=== PATIENT | female | born 1935 | race Caucasian/White ===

== ENCOUNTER 2019-07-13 15:18 | Emergency (ER) | payer OTHER ==
[~2019-07-13] VITALS: Ht 141 cm; Wt 55.3 kg
[2019-07-13 15:23] VITALS: BP 122/86
--- NOTE | 2019-07-13 15:32 | NUR ---
AMB TO BED 06 WITH SON
--- NOTE | 2019-07-13 15:41 | NUR ---
84 YO FEMALE CO GENERAL WEAKNESS, FATIGUE, LOSS OF APPETITE AND FLANK PAIN. STATES THAT PAIN IN 6/10 IN LOWER BACK 3D. PT HAS DECREASED APPETITE AND HAS NOT EATEN NORMALLY IN A FEW DAYS. N/V/D PRESENT. PT HAS HX OF STOMACH CANCER. NO RX MEDS. Addendum: 07/13/19 at 1636 by [email or web address] AMANDA BACK PAIN 6/10 X 10 DAYS.
--- NOTE | 2019-07-13 15:51 | NUR ---
UA DIPSTICK COMPLETE AND RESULTS GIVEN TO
--- NOTE | 2019-07-13 15:53 | NUR ---
Patient being evaluated by DR SALDIVAR at bedside.
[2019-07-13] MEDS ORDERED: NACL 0.9% 1,000 ML IV ONE (16:05)
[2019-07-13 16:30] LABS: BASOPHILS % (AUTO) 0.7 % (0.0-2.0); EOSINOPHILS # (AUTO) 0.1 K/uL (0-0.4); EOSINOPHILS % (AUTO) 1.7 % (0.0-4.0); HEMATOCRIT 43.1 % (36-48); HEMOGLOBIN 14.2 g/dL (12.0-16.0); LYMPHOCYTES # (AUTO) 1.3 K/uL (2.5-16.5); LYMPHOCYTES % (AUTO) 25.5 % (20.5-51.1); MEAN CORPUSCULAR HEMOGLOBIN 30 pg (27-31); MEAN CORPUSCULAR HGB CONC 33 g/dL (33-37); MEAN CORPUSCULAR VOLUME 91.3 fL (80-94); MONOCYTES # (AUTO) 0.6 K/uL (0.8-1.0); MONOCYTES % (AUTO) 11.5 % (1.7-9.3); NEUTROPHILS % (AUTO) 60.6 % (42.2-75.2); PLATELET COUNT (AUTO) 327 K/uL (140-450); RED BLOOD CELL COUNT(AUTO) 4.72 MIL/uL (4.20-5.40); RED CELL DISTRIBUTION WIDTH 13.9 % (11.6-13.7)
--- NOTE | 2019-07-13 16:59 | NUR ---
C/O BODY ACHE 11/16 AT THIS TIME.
[2019-07-13 17:14] LABS: ALBUMIN 3.9 g/dL (3.4-5.0); ANION GAP 15.4 (8-16); ASPARTATE AMINOTRANSFERASE 21 U/L (15-37); CARBON DIOXIDE 26.6 mmol/L (21-32); CHLORIDE 104 mmol/L (98-107); CREATININE 0.8 mg/dL (0.6-1.3); GLUCOSE 98 mg/dL (74-106); LIPASE 218 U/L (73-393); SODIUM SERUM 142 mmol/L (136-145); TOTAL BILIRUBIN 0.7 mg/dL (0.0-1.0); UREA NITROGEN, BLOOD 25 mg/dL (7-18)
[2019-07-13 17:18] LABS: APPEARANCE,URINE CLEAR (CLEAR); BILIRUBIN,URINE NEGATIVE (NEGATIVE); BLOOD, URINE NEGATIVE (NEGATIVE); COLOR,URINE AMBER (YELLOW); LEUKOCYTE ESTERASE ,URINE TRACE (NEGATIVE); NITRITE, URINE NEGATIVE (NEGATIVE); PH,URINE 5.5 (5.0-9.0); UGLUCOSE NEGATIVE (NEGATIVE)
[2019-07-13 17:51] LABS: RBC,URINE NONE SEEN /HPF (0-5); WBC,URINE 16-25 (MOD) /HPF (0-5)
[2019-07-13] MEDS ORDERED: cefTRIAXone 1,000 MG VIAL ONE (17:59)
--- NOTE | 2019-07-13 18:02 | NUR ---
PT TAKEN TO CT.
[2019-07-13] MEDS ORDERED: NACL 0.9% 500 ML IV ONE (18:05)
[2019-07-13 19:11] VITALS: BP 121/78
== END 2019-07-13 19:11 | disposition home or self-care (01) ==
LOC: MED 15:18
DX: N39.0 Urinary tract infection, site not specified (principal); E86.0 Dehydration; Z85.028 Personal history of other malignant neoplasm of stomach
CPT/HCPCS: 36415; 74177; 80053; 81001; 83690; 85025; 96361; 96365; 99284; J0696; J7030; J7060; Q9967

== ENCOUNTER 2020-02-23 15:30 | Emergency (ER) | payer OTHER ==
[~2020-02-23] VITALS: Ht 152.4 cm; Wt 61.2 kg
[2020-02-23 15:37] VITALS: BP 128/79
--- NOTE | 2020-02-23 16:03 | NUR ---
W/C TO BED 09
--- NOTE | 2020-02-23 16:20 | NUR ---
85 y/o F presents to ER c/o left lower back pain that raidates to left leg x 3 days. Denies any trauma or injury. Pt denies any numbness or tingling. Pt unable to ambulate due to the pain. Pt has been taking Ibuprofen 800mg and Indomethacin, with minor pain relief. Vital Signs Stable. Dr. Joe evaluating pt at bedside. Allergies: NKA Med hx: none
--- NOTE | 2020-02-23 17:08 | NUR ---
LAB AT BEDSIDE
[2020-02-23 17:30] LABS: BASOPHILS # (AUTO) 0.1 K/uL (0.00-0.22); EOSINOPHILS # (AUTO) 0.1 K/uL (0-0.4); EOSINOPHILS % (AUTO) 2.1 % (0.0-4.0); HEMOGLOBIN 13.6 g/dL (12.0-16.0); LYMPHOCYTES # (AUTO) 1.2 K/uL (2.5-16.5); MEAN CORPUSCULAR HEMOGLOBIN 31 pg (27-31); MEAN CORPUSCULAR HGB CONC 33 g/dL (33-37); MEAN CORPUSCULAR VOLUME 92.2 fL (80-94); MONOCYTES # (AUTO) 0.8 K/uL (0.8-1.0); MONOCYTES % (AUTO) 11.2 % (1.7-9.3); NEUTROPHILS # (AUTO) 4.8 K/uL (1.8-7.7); NEUTROPHILS % (AUTO) 68.7 % (42.2-75.2); PLATELET COUNT (AUTO) 264 K/uL (140-450); RED BLOOD CELL COUNT(AUTO) 4.45 MIL/uL (4.20-5.40); RED CELL DISTRIBUTION WIDTH 13.7 % (11.6-13.7)
[2020-02-23 17:41] LABS: ALBUMIN 3.6 g/dL (3.4-5.0); ANION GAP 11.4 (8-16); ASPARTATE AMINOTRANSFERASE 14 U/L (15-37); CARBON DIOXIDE 27.8 mmol/L (21-32); CHLORIDE 104 mmol/L (98-107); CREATININE 0.7 mg/dL (0.6-1.3); GLUCOSE 98 mg/dL (74-106); POTASSIUM 4.2 mmol/L (3.5-5.1); SODIUM SERUM 139 mmol/L (136-145); TOTAL BILIRUBIN 0.7 mg/dL (0.0-1.0); UREA NITROGEN, BLOOD 27 mg/dL (7-18)
--- NOTE | 2020-02-23 18:00 | NUR ---
Updated pt and family on plan of care. Vital Signs Stable. Will continue to monitor.
[2020-02-23] MEDS ORDERED: KETOROLAC 60 MG/2 ML VIAL IM ONE (18:35)
[2020-02-23 19:00] VITALS: BP 136/96
--- NOTE | 2020-02-23 19:00 | NUR ---
Patient discharged with v/s stable. Written and verbal after care instructions given and explained to family member. Patient alert, oriented and verbalized understanding of instructions. Pt wheelchair assisted to car. All questions addressed prior to discharge. ID band removed. Patient advised to follow up with PMD. Rx of Robaxin 500mg, Tramadol 50mg, and Motrin 800mg was given. Patient educated on indication of medication including possible reaction and side effects. Opportunity to ask questions provided and answered.
== END 2020-02-23 19:00 | disposition home or self-care (01) ==
LOC: MED 15:30
DX: M54.42 Lumbago with sciatica, left side (principal); Z85.9 Personal history of malignant neoplasm, unspecified
CPT/HCPCS: 36415; 72131; 74176; 80053; 85025; 96372; 99285; J1885

== ENCOUNTER 2020-03-01 14:23 | Emergency (ER) | payer OTHER ==
[~2020-03-01] VITALS: Ht 154.9 cm; Wt 61.2 kg
[2020-03-01 14:36] VITALS: BP 165/111
[2020-03-01] MEDS ORDERED: KETOROLAC 60 MG/2 ML VIAL IM ONE (15:15)
[2020-03-01] MEDS ORDERED: IBUP-1842 PO (18:57)
[2020-03-01 19:18] LABS: BASOPHILS # (AUTO) 0.1 K/uL (0.00-0.22); BASOPHILS % (AUTO) 0.8 % (0.0-2.0); EOSINOPHILS # (AUTO) 0.1 K/uL (0-0.4); EOSINOPHILS % (AUTO) 1.8 % (0.0-4.0); HEMATOCRIT 38.7 % (36-48); HEMOGLOBIN 12.8 g/dL (12.0-16.0); LYMPHOCYTES # (AUTO) 1.1 K/uL (2.5-16.5); LYMPHOCYTES % (AUTO) 16.1 % (20.5-51.1); MEAN CORPUSCULAR HEMOGLOBIN 30 pg (27-31); MEAN CORPUSCULAR HGB CONC 33 g/dL (33-37); MEAN CORPUSCULAR VOLUME 91.4 fL (80-94); MONOCYTES # (AUTO) 0.7 K/uL (0.8-1.0); MONOCYTES % (AUTO) 9.5 % (1.7-9.3); NEUTROPHILS % (AUTO) 71.8 % (42.2-75.2); PLATELET COUNT (AUTO) 283 K/uL (140-450); RED BLOOD CELL COUNT(AUTO) 4.23 MIL/uL (4.20-5.40); RED CELL DISTRIBUTION WIDTH 13.9 % (11.6-13.7); WHITE BLOOD COUNT (AUTO) 6.9 K/uL (4.8-10.8)
[2020-03-01 19:32] LABS: ALBUMIN 3.4 g/dL (3.4-5.0); ANION GAP 12.4 (8-16); ASPARTATE AMINOTRANSFERASE 15 U/L (15-37); CARBON DIOXIDE 26.7 mmol/L (21-32); CHLORIDE 108 mmol/L (98-107); CREATININE 0.8 mg/dL (0.6-1.3); GLUCOSE 109 mg/dL (74-106); POTASSIUM 3.1 mmol/L (3.5-5.1); SODIUM SERUM 144 mmol/L (136-145); TOTAL BILIRUBIN 0.5 mg/dL (0.0-1.0); UREA NITROGEN, BLOOD 21 mg/dL (7-18)
[2020-03-01 23:20] VITALS: BP 138/82
== END 2020-03-01 23:19 | disposition short-term general hospital (02) ==
LOC: MED 14:23
DX: K52.89 Other specified noninfective gastroenteritis and colitis (principal); M54.5 Low back pain; K59.00 Constipation, unspecified; Z79.899 Other long term (current) drug therapy; Z85.028 Personal history of other malignant neoplasm of stomach
CPT/HCPCS: 36415; 74176; 80053; 81002; 85025; 87426; 96372; 99285; J1885

== ENCOUNTER 2020-05-08 14:35 | Emergency (ER) | payer OTHER ==
[~2020-05-08] VITALS: Ht 160 cm; Wt 58.1 kg
[~2020-05-08 14:35] MED LIST: IBUP-1842 PO
[2020-05-08 15:00] VITALS: BP 125/75
--- NOTE | 2020-05-08 15:16 | NUR ---
85 YEAR OLD FEMALE COMPLAINS OF LOWER BACK PAIN X 12 DAYS. PT STATES THAT SHE HAS NOT HAVE BOWEL MOVEMENT IN 12 DAYS, WITH ABDOMINAL PAIN AND DISTENTION. PT DENIES NAUSEA, VOMITTING. PT ALSO COMPLAINS OF LOWER BACK PAIN X CHRONIC. PT UNABLE TO AMBULATE DUE TO PAIN. PT AOX4, BREATHING EVEN AND UNLABORED, SKIN WARM AND DRY. BED IN LOWEST POSITION, LOCKED, BED RAIL UPX1. DAUGHTER AT BEDSIDE PMH - DENIES ALLERGIES - NKA
[2020-05-08] MEDS ORDERED: SODIUM PHOSPHATE 118 ML ENEM RC ONE ×2 (15:35→16:55)
[2020-05-08] MEDS ORDERED: MINERAL OIL 135 ML ENEM RC ONE ×2 (15:35→16:55)
--- NOTE | 2020-05-08 16:08 | NUR ---
ENEMA PLACED IN PT WITH DAUGHTER AT BEDSIDE WITH NNEKA BENITEZ. BEDSIDE COMMODE AT BEDSIDE, PT PLACED ON COMMODE WITH DAUGHTER AT SIDE
--- NOTE | 2020-05-08 16:18 | NUR ---
PT ABLE TO PASS SOME STOOL, DR POTTS MADE AWARE
[2020-05-08 17:30] VITALS: BP 123/78
--- NOTE | 2020-05-08 17:30 | NUR ---
Patient discharged with v/s stable. Written and verbal after care instructions about constipation in adults given and explained. Patient alert, oriented and verbalized understanding of instructions. Ambulatory with steady gait. All questions addressed prior to discharge. ID band removed. Patient advised to follow up with PMD. Rx of fleet enema, colace given. Patient educated on indication of medication including possible reaction and side effects. Opportunity to ask questions provided and answered.
== END 2020-05-08 17:30 | disposition home or self-care (01) ==
LOC: MED 14:35
DX: K59.00 Constipation, unspecified (principal); Z79.899 Other long term (current) drug therapy
CPT/HCPCS: 74018; 99284

== ENCOUNTER 2021-06-13 15:15 | Inpatient (IN) | payer OTHER, SELFPAY ==
[~2021-06-13] VITALS: Ht 137.2 cm; Wt 63.5 kg
[2021-06-13 15:27] VITALS: BP 156/97
--- NOTE | 2021-06-13 15:52 | NUR ---
PT W/C ASSISTED TO BED CHC AND CONNECTED TO CONCHE LOADER AND UNLOADER
[2021-06-13] MEDS ORDERED: DILTIAZEM 25 MG/5 ML VIAL IVP ONE ×3 (16:10→18:50)
[2021-06-13] MEDS ORDERED: NACL 0.9% 500 ML IV ONE (16:10)
[2021-06-13 17:13] LABS: BASOPHILS % (AUTO) 0.5 % (0.0-2.0); EOSINOPHILS % (AUTO) 0.6 % (0.0-4.0); HEMATOCRIT 37.1 % (36-48); HEMOGLOBIN 12.4 g/dL (12.0-16.0); LYMPHOCYTES # (AUTO) 0.8 K/uL (2.5-16.5); LYMPHOCYTES % (AUTO) 10.4 % (20.5-51.1); MEAN CORPUSCULAR HEMOGLOBIN 31 pg (27-31); MEAN CORPUSCULAR HGB CONC 33 g/dL (33-37); MEAN CORPUSCULAR VOLUME 91.3 fL (80-94); MONOCYTES # (AUTO) 0.7 K/uL (0.8-1.0); MONOCYTES % (AUTO) 9.3 % (1.7-9.3); NEUTROPHILS # (AUTO) 5.9 K/uL (1.8-7.7); NEUTROPHILS % (AUTO) 79.2 % (42.2-75.2); PLATELET COUNT (AUTO) 217 K/uL (140-450); RED BLOOD CELL COUNT(AUTO) 4.06 MIL/uL (4.20-5.40); RED CELL DISTRIBUTION WIDTH 14.2 % (11.6-13.7); WHITE BLOOD COUNT (AUTO) 7.4 K/uL (4.8-10.8)
[2021-06-13 17:31] LABS: ALBUMIN 3.2 g/dL (3.4-5.0); ANION GAP 14.6 (8-16); ASPARTATE AMINOTRANSFERASE 19 U/L (15-37); CARBON DIOXIDE 24.5 mmol/L (21-32); CHLORIDE 106 mmol/L (98-107); CREATININE 0.8 mg/dL (0.6-1.3); GLUCOSE 144 mg/dL (74-106); MAGNESIUM 1.9 mg/dL (1.8-2.4); POTASSIUM 4.1 mmol/L (3.5-5.1); SODIUM SERUM 141 mmol/L (136-145); TOTAL BILIRUBIN 0.9 mg/dL (0.0-1.0); UREA NITROGEN, BLOOD 29 mg/dL (7-18)
[2021-06-13] MEDS ORDERED: AZITHROMYCIN 500 MG in DEXTROSE 5% 250 ML IV ONE (18:05)
[2021-06-13] MEDS ORDERED: DILTIAZEM 125 MG in DEXTROSE 5% 100 ML IV ONE (18:05)
--- NOTE | 2021-06-13 18:42 | NUR ---
NERIS TORO SAMPLE COLLECTED AND WALKED TO LAB
[2021-06-13] MEDS ORDERED: DILTIAZEM 125 MG in DEXTROSE 5% 100 ML IV SCH (18:50)
--- NOTE | 2021-06-13 19:33 | NUR ---
REPORT GIVEN TO NATAN RN, TRANSFER OF CARE AT THIS TIME.
[2021-06-13] MEDS ORDERED: cefTRIAXone 1,000 MG VIAL ONE (20:05)
[2021-06-13] MEDS ORDERED: ONDANSETRON 4 MG/2 ML VIAL IVP PRN (22:00)
[2021-06-13] MEDS ORDERED: ACETAMINOPHEN 325 MG TAB PO PRN (22:00)
--- NOTE | 2021-06-13 23:12 | NUR ---
POC: CHRISTEN ([facility])
--- NOTE | 2021-06-13 23:18 | NUR ---
SPOKE WITH DR PRIEST REGARDING UPDATE ON PT CONDITION.
[2021-06-13] MEDS ORDERED: AZITHROMYCIN 500 MG INJ VIAL IV ONE (23:59)
--- NOTE | 2021-06-14 00:37 | NUR ---
PT'S O2 SATS HAVE BEED DECLINING INTO THE HIGH 80S. PT WILL NOT KEEP THE NASAL CANULA ON. NON REBREATHER WAS PLACED NEXT TO PT FOR BLOW-BY OXYGEN AND PT SATS ARE NOW 93%.
--- NOTE | 2021-06-14 02:00 | NUR ---
KYLEZEM HELD AT THIS TIME. HR IN 80s AND BUT SYSTOLIC BP IS >100.
--- NOTE | 2021-06-14 02:24 | NUR ---
PT IS NOW SLEEPING AND IS ABLE TO TOLERATE NRB ON HER FACE. PULSOX IS AT 98%.
--- NOTE | 2021-06-14 05:23 | NUR ---
PT WILL NOT KEEP NRB ON HER FACE AND CONTINUES TO DESAT. MASK WAS REPLACED SEVERAL TIMES. W/ MASK PT WILL HAVE 92-94%, W/O PT WILL DESAT TO 87%.
[2021-06-14 08:29] LABS: BASOPHILS % (AUTO) 0.4 % (0.0-2.0); HEMATOCRIT 36.5 % (36-48); LYMPHOCYTES # (AUTO) 0.5 K/uL (2.5-16.5); LYMPHOCYTES % (AUTO) 5.8 % (20.5-51.1); MEAN CORPUSCULAR HEMOGLOBIN 31 pg (27-31); MEAN CORPUSCULAR HGB CONC 33 g/dL (33-37); MEAN CORPUSCULAR VOLUME 92.7 fL (80-94); MONOCYTES # (AUTO) 0.6 K/uL (0.8-1.0); MONOCYTES % (AUTO) 7.7 % (1.7-9.3); NEUTROPHILS # (AUTO) 7.1 K/uL (1.8-7.7); NEUTROPHILS % (AUTO) 86.1 % (42.2-75.2); PLATELET COUNT (AUTO) 201 K/uL (140-450); RED BLOOD CELL COUNT(AUTO) 3.94 MIL/uL (4.20-5.40); RED CELL DISTRIBUTION WIDTH 14.7 % (11.6-13.7); WHITE BLOOD COUNT (AUTO) 8.2 K/uL (4.8-10.8)
[2021-06-14 08:52] LABS: ANION GAP 16.3 (8-16); CHLORIDE 107 mmol/L (98-107); CREATININE 0.9 mg/dL (0.6-1.3); GLUCOSE 115 mg/dL (74-106); POTASSIUM 4.3 mmol/L (3.5-5.1); SODIUM SERUM 143 mmol/L (136-145); UREA NITROGEN, BLOOD 29 mg/dL (7-18)
--- NOTE | 2021-06-14 10:51 | NUR ---
COMBINATION SAW OPERATOR BEDSIDE AT THIS TIME
--- NOTE | 2021-06-14 10:51 | NUR ---
SON BEDSIDE WITH PATIENT. VITAL SIGNS TAKEN AND CHARTED.
[2021-06-14] MEDS ORDERED: FUROSEMIDE 20 MG/2 ML VIAL IVP SCH (10:55)
[2021-06-14] MEDS ORDERED: METOPROLOL 5 MG/5 ML VIAL IV PRN (10:55)
--- NOTE | 2021-06-14 11:41 | NUR ---
IV INFILTRATED AND REMOVED. ATTEMPTED IV AND NO ACCESS AT THIS TIME
--- NOTE | 2021-06-14 13:16 | NUR ---
PATIENT HAS BEEN SCREENED AND CATEGORIZED MODERATE NUTRITION RISK. PATIENT WILL BE SEEN WITHIN 3-5 DAYS OF ADMISSION. [address]
--- NOTE | 2021-06-14 17:33 | NUR ---
LEFT MESSAGE FOR PICC LINE NURSE SARAHI [phone]
--- NOTE | 2021-06-14 19:20 | NUR ---
Pt report given to SHERRI EARLY. Transfer of care at this time.
--- NOTE | 2021-06-14 21:00 | NUR ---
started 3 IV sites on pt. pt tolerated well.
[2021-06-14] MEDS: METOPROLOL 25 MG TAB PO SCH (21:37)
[2021-06-14 23:49] LABS: APPEARANCE,URINE SL CLOUDY (CLEAR); BILIRUBIN,URINE NEGATIVE (NEGATIVE); BLOOD, URINE NEGATIVE (NEGATIVE); COLOR,URINE DARK YELLOW (YELLOW); LEUKOCYTE ESTERASE ,URINE NEGATIVE (NEGATIVE); NITRITE, URINE NEGATIVE (NEGATIVE); PH,URINE 5.5 (5.0-9.0); UGLUCOSE NEGATIVE (NEGATIVE)
[2021-06-15] VITALS (13 sets, daily range): BP systolic 101–132; BP diastolic 60–97
--- NOTE | 2021-06-15 00:24 | NUR ---
PT QUIETLY SLEEPING. X2 SIDE RAILS UP FOR PATIENT SAFETY. BED LOWERED TO LOWEST POSITION. ALL VSS
--- NOTE | 2021-06-15 04:00 | NUR ---
PT GETTING OUT OF BED PULLING ON WIRES AND IV. CHARGE NURSE MANISH NOTIFIED FOR PRN ATIVAN
[2021-06-15] MEDS: MORPHINE SULFATE 2 MG/ML SYR IVP PRN ×2 (04:08→22:08)
--- NOTE | 2021-06-15 06:00 | NUR ---
PT DAUGHTER AT BEDSIDE. DAUGHTER REQUESTED MOM BE ON SIMPLE MASK INSTEAD OF NASAL CANNULA
--- NOTE | 2021-06-15 07:19 | NUR ---
daughter at bedside. pt sleeping softly. all vss. [facility] at [facility]
--- NOTE | 2021-06-15 07:32 | NUR ---
RECEIVED REPORT FROM ELAINA RITTER, TRANSFER OF CARE AT THIS TIME. PT RESTING IN BED WITH EVEN AND UNLABORED RESPIRATIONS OBSERVED. PT ON QUILTING SUPERVISOR, NO DISTRESS NOTED. DAUGHTER AT BEDSIDE. NO FLUIDS RUNNING AT THIS TIME. WILL CONTINUE TO MONITOR.
--- NOTE | 2021-06-15 08:21 | NUR ---
GAVE REPORT TO SEAN EARLY FOR ADMISSION TO ICU.
--- NOTE | 2021-06-15 08:32 | NUR ---
Patient will be admitted to care of DR HANSEN. Admited to ICU. Will go to room 5. Belongings list completed. Report to SEAN EARLY.
--- NOTE | 2021-06-15 08:47 | NUR ---
RECEIVED PATIENT FROM ER NURSE VIA CESILIA. PT ADMITTED FOR AFIB, RVR. PT IS AOX2, SPEAKS BELARUSIAN. RESPIRATIONS EVEN AND UNLABORED. ON ROOM AIR. NO RESPIRATORY DISTRESS NOTED. SKIN IS WARM, DRY, AND INTACT. IV SITE ON 20 G LW, 18 G RFA, AND 20 G RFA. SALINE LOCKED. INTACT AND PATENT. ABD IS SOFT, FLAT, AND NONDISTENDED. BOWEL SOUNDS ACTIVE IN ALL QUADRANTS. FLACC 0. FAMILY AT BEDSIDE. PLAN OF CARE DISCUSSED. SAFETY PRECAUTIONS IN PLACE. CALL LIGHT WITHIN REACH. WILL CONTINUE TO MONITOR.
--- NOTE | 2021-06-15 09:02 | NUR ---
DC PLANNING: PATIENT ADMITTED THROUGH THE ED FROM HOME WITH C/O CHEST PAIN AND WEAKNESS X 3 DAYS. H/O DEMENTIA AND STOMACH CANCER POST RX OF CHEMO AND RADIATION. PATIENT FOUND TO BE IN AFIB WITH RVR, HR TO 160'S, SUSPECTED ASPIRATION PNA. EMPIRIC ABX IN ED, DILTIAZEM IV, ADMITTED TO ICU. HR CONTINUES TO THE 140'S TODAY, ON LOPRESSOR PO AND PRN FOR ELEVATED HR. MALI SPOKE WITH RAHEL AT [facility] ([phone]) CLINICAL REVIEW GIVEN, QUESTION OF DOWNGRADING PATIENT LATER TO TELEMETRY. MALI WILL CALL RAHEL AFTER THE JUNIOR NET DEVELOPER AND ATTENDING HAVE SEEN THE PATIENT REGARDING LOC. MALI WILL FOLLOW FOR NEEDS. Addendum: 06/19/21 at 1144 by Jolene Rinaldi CM DC PLANNING: MALI SPOKE WITH THE CM AT [facility] SOCORRO ([phone]), UPDATED HER CLINICALLY. MALI THEN SPOKE WITH HER SON CHRISTEN BY PHONE AND CONFIRMED THE ADDRESS AND PHONE NUMBER ON THE FACE SHEET. THE PATIENT HAS ADVANCED DEMENTIA AND PER HER SON IS CONFUSED 90% OF THE TIME. SHE IS ABLE TO AMBULATE WITH A FWW AND HAS A WC. SHE IS TOTAL CARE FOR ADL'S AND DOES FOLLOW UP WITH HER PCP. THE PATIENT LIVES IN A SECOND FLOOR APARTMENT WITH HER SON AND , AND IS FED BITE BY BITE BY HER DAUGHTER IN LAW. THE SON WILL AGREE TO PEG PLACEMENT IF NECESSARY AND WAS CLEAR THAT FAMILY WILL CONTINUE TO TAKE CARE OF THE PATIENT AND THAT THEY ARE NOT INTERESTED IN HOSPICE. NO PRIOR H/O HOME HEALTH, MALI WILL FOLLOW NEEDED. Addendum: 06/19/21 at 1641 by Jolene Rinaldi CM DC PLANNING: VM FROM [facility] STATING THAT HER OIL WELL DRILLER DR BEJARANO WANTS TO SPEAK WITH THE ATTENDING MD DR ISLAS. CM ENDORSED TO DR ISLAS, HE HAD DR BEJARANO'S CELL PHONE AND WILL CALL HIM. PER SOCORROAnna BEJARANO WANTS TO TALK ABOUT OPTIONS FOR THE NGT AND END OF LIFE MANAGEMENT. MALI ENDORSED TO DR ISLAS THAT THE PATIENTS SON STATED TO CM THAT HE DOESN'T WANT HOSPICE. CM WILL FOLLOW. Addendum: 06/22/21 at 1427 by Jolene Rinaldi CM DC PLANNING: THE PATIENT REMAINS IN ICU ON HIGH FLOW O2 AT 65%, NGT AND ZOSYN IV. CM WILL FOLLOW FOR NEEDS. Addendum: 06/26/21 at 1142 by Jolene Rinaldi CM DC PLANNING: MALI GAVE UPDATED REVIEW TO MALI CEE FOR [facility], DISCUSSED CURRENT NGT, POSSIBLE PEG PLACEMENT. MALI WILL FOLLOW. Addendum: 06/28/21 at 1147 by Jolene Rinaldi CM DC PLANNING: MALI SPOKE WITH MALI QUINTANILLA AT [facility] ([phone]), ENDORSED THAT PATIENT WILL NEED A PEG AND SNF PLACEMENT. SHE WILL HAVE HER OIL WELL DRILLER CALL DR ARANA TO DISCUSS THE CASE AND WILL START LOOKING FOR A SNF. MALI WILL SPEAK WITH THE PATIENTS FAMILY REGARDING DC PLANNING. MALI WILL FOLLOW. Addendum: 06/28/21 at 1212 by Jolene Rinaldi CM DC PLANNING: MALI SPOKE WITH THE PATIENTS SON CHRISTEN BY PHONE, DISCUSSED PEG PLACEMENT AND SNF. HE DOES NOT WANT SNF PLACEMENT AND IS OPEN TO PEG PLACEMENT. ENDORSED THAT THE PATIENT WILL NEED HOME HEALTH FOR PEG OVERSIGHT AND PHYSICAL THERAPY, CHRISTEN STATES THAT HE IS IN AGREEMENT WITH THIS PLAN. MALI THEN SPOKE WITH SOCORRO AT [facility] AND ENDORSED THE PLAN, SOCORRO IS ASKING FOR ORDERS SO SHE CAN START ORDERING PEG SUPPLIES. THEN SPOKE WITH BEATRICE, SALES ARCHITECT, SHE WILL CALL MALI WITH HER RECOMMENDATIONS FOR HOME BOLUS FEEDINGS. MALI WILL FOLLOW. Addendum: 06/29/21 at 1342 by Jolene Rinaldi CM DC PLANNING: MALI SPOKE WITH MALI QUINTANILLA AT [facility] FOR DIRECTION ON ORDERS FOR PEG FEEDINGS AT HOME. PATIENT WILL NEED PUMP INSTEAD OF BOLUS FEEDINGS BECAUSE OF VOLUME NEEDED TO MEET NEEDS. MESSAGE LEFT FOR RD, RECOMMENDATION FOR FREE WATER NEEDED BEFORE FINAL ORDER CAN BE ENTERED AND SENT. PATIENT WILL NOT NEED HOME O2, WILL NEED HOME HEALTH. SPOKE WITH DR ARANA TO ENDORSE THAT HOME MEDICATIONS NEED TO BE ORDERED LIQUID IF POSSIBLE FOR PEG ADMINISTRATION. MALI WILL SEND ORDERS TO [facility] ONCE FINAL RECOMMENDATION FROM RD IS GIVEN. Addendum: 06/29/21 at 1459 by Jolene Rinaldi DC PLANNING: CM SPOKE WITH THE PATIENTS JOHN VELÁSQUEZ BY PHONE TO DISCUSS DC PLANNING. ENDORSED THAT A [employer] PUMP IS THE BEST OPTION FOR HER PEG FEEDINGS AND THAT HOME HEALTH P.T. WILL BE ORDERED. ALSO DISCUSSED LACK OF CRITERIA FOR PLACEMENT AT [facility]. ORDER FOR FEEDING SUPPLIES AND HOME HEALTH FAXED TO [facility], MALI WILL FOLLOW. Addendum: 07/02/21 at 1758 by Concepcion Malin DC Planning: SUPERVISOR ELECTRONICS ASSEMBLY spoke with Tereza and faxed over oxygen order to: [phone]. SUPERVISOR ELECTRONICS ASSEMBLY received call from feed house supervisor that oxygen has been delivered. CM Staff needs to confirm when peg feeding supplies will be delivered. Pending dc once supplies confirmed. Addendum: 07/03/21 at 1524 by Jolene Rinaldi CM DC PLANNING: MALI SPOKE WITH SOCORRO AT [facility] ([phone]), HOME HEALTH SET UP BY [facility] WITH [facility], HOME O2 AND PEG FEEDING SUPPLIES ARRANGED WITH [facility] NICOLE, . MESSAGE LEFT WITH PANFIL[facility] REGARDING DELIVERY. MALI THEN SPOKE WITH THE PATIENTS SON, HE NOW STATES HE WANTS HIS MOTHER TO HAVE REHAB AND ASKED FOR PLACEMENT AT [facility] OR [facility]. MALI EXPLAINED THAT [facility] WILL SPEAK WITH THE CONTRACTED FACILITIES, MESSAGE LEFT FOR SOCORRO AT [facility] LETTING HER KNOW ABOUT THE CHANGE IN PLAN. MALI WILL FOLLOW. Addendum: 07/04/21 at 1201 by Jolene Rinaldi CM DC PLANNING: MALI SPOKE WITH SOCORRO AT [facility], FAXED UPDATED COVID RESULTS, SHE IS WORKING ON SNF PLACEMENT AND WILL CONTACT [facility] THIS WAS THE FAMILY'S FIRST CHOICE FOR PLACEMENT. CM WILL FOLLOW. Addendum: 07/04/21 at 1648 by Jolene Rinaldi CM DC PLANNING: PATIENT ACCEPTED TO [facility] IN [place], ACCEPTING MD WILL BE AN [facility]. TRANSPORT WILL BE ARRANGED WITH [facility] ON WILL CALL FOR AFTER 8 PM, NUMBER TO NURSES STATION GIVEN TO SOCORRO AT [facility]. [employer] WILL CALL THE NURSES STATION TO TELL THEM WHAT TIME PLISSE MACHINE OPERATOR IS, ROOM NUMBER [id number] AT [facility], NUMBER TO CALL REPORT IS [phone]. MALI SPOKE WITH DR BRUNO AND ASKED FOR A DC ORDER AND MED REC, ALSO SPOKE WITH NNEKA BACA AND ENDORSED ABOVE. CM WILL FOLLOW. Addendum: 07/04/21 at 1806 by Jolene Rinaldi CM DC PLANNING: MALI SPOKE WITH THE PATIENTS SON TO LET HIM KNOW THAT THE PATIENT IS ACCEPTED TO [facility] AND THAT [facility] DID NOT HAVE BEDS. CHRISTEN ASKED FOR THE ADDRESS AND PHONE NUMBER WHICH CM GAVE HIM. CM ENDORSED THAT THE TRANSPORT TIME HAS NOT YET BEEN DETERMINED. MALI THEN RECEIVED A CALL FROM NURSING STATING THAT THE PATIENT'S SON IS STATING THAT HE IS GOING TO PICK THE PATIENT UP. MALI, CNO AND RN SPOKE WITH THE PATIENTS SON CHRISTEN BY PHONE WHO STATES THAT HE DOES NOT WANT HIS MOTHER TO GO TO [facility]. CONFIRMED THAT [facility] HAS NOT DELIVERED ENTERAL FEEDING SUPPLIES, MALI SPOKE WITH ALEX[place]RIA, AFTER HOURS MALI AT [facility] WHO WILL DOCUMENT NEED FOR DELIVERY. ALSO CONFIRMED THAT THE PATIENT HAS A TRANSPORTATION BENEFIT, TRANSPORT WILL BE SET UP WHEN ARRANGEMENTS ARE FINALIZED. MALI THEN SPOKE AGAIN WITH CHRISTEN AT LENGTH REGARDING [facility], HE STATES HE IS WILLING TO CONSIDER IT, CM WILL SPEAK WITH HIM IN THE AM. ALSO RECEIVED A CALL FROM ALEXANDRIA AT [facility], ENTERAL SUPPLIES WILL BE DELIVERED TONIGHT.' CM WILL FOLLOW. Addendum: 07/05/21 at 0907 by Jolene Rinaldi CM DC PLANNING: THE BRIDGE WORKER APPRENTICE SHWETA SPOKE WITH THE PATIENTS SON CHRISTEN AND HE IS IN AGREEMENT WITH THE PATIENT GOING TO [facility]. MALI SPOKE WITH [facility] MALI QUINTANILLA AND ASKED HER TO ARRANGE TRANSPORT, MALI ALSO ENDORSED TRANSFER TO NNEKA PEREZ AT [facility]. MALI IS WAITING FOR [facility] TO CONFIRM PLISSE MACHINE OPERATOR TIME AND WILL FOLLOW. Addendum: 07/05/21 at 1144 by Jolene Rinaldi DC PLANNING: PATIENT TO BE PICKED UP BY [facility] ([phone]) BETWEEN 7-8 PM TODAY. WILL FOLLOW.
[2021-06-15] MEDS: METOPROLOL 25 MG TAB PO SCH (09:15)
[2021-06-15] MEDS: APIXABAN 2.5 MG TAB PO SCH ×3 (09:52→20:33)
--- NOTE | 2021-06-15 09:55 | NUR ---
ALL SCHEDULED MEDS GIVEN. PT IS STABLE. NO DISTRESS NOTED. WILL CONTINUE TO MONITOR.
--- NOTE | 2021-06-15 10:15 | NUR ---
CARDIO MD AT PATIENT'S BEDSIDE.
--- NOTE | 2021-06-15 12:30 | NUR ---
ASSISTED IN FEEDING PATIENT. PATIENT REFUSED TO EAT. NOTIFIED MD AND NEW ORDERS WERE RECEIVED FOR HYDRATION FLUIDS.
[2021-06-15] MEDS: DEXT 5% / NACL 0.45% 1,000 ML IV SCH (12:43)
--- NOTE | 2021-06-15 14:55 | NUR ---
ASSISTED PATIENT TO THE COMMODE.
[2021-06-15] MEDS: METOPROLOL 5 MG/5 ML VIAL IV PRN (16:00)
--- NOTE | 2021-06-15 17:00 | NUR ---
CHECKED ON PATIENT. PT IS STABLE. NO DISTRESS NOTED. WILL CONTINUE TO MONITOR.
--- NOTE | 2021-06-15 19:37 | NUR ---
ENDORSED TO DOOR CLOSER MECHANIC NURSE FOR CONTINUITY OF CARE. PT IS STABLE.
--- NOTE | 2021-06-15 19:38 | NUR ---
RECEIVED BEDSIDE REPORT FROM DAY RN. PT IS AWAKE. SPEAKS FRISIAN ONLY. HX DEMENTIA. RESPIRATIONS ARE EQUAL AND UNLABORED ON ROOM AIR HAS NC ON STANDBY SAT WELL 93%. SKIN IS WARM, DRY AND INTACT. PER REPORT AMBULATES WITH ASSIST TO BEDSIDE COMMODE. C/C POOR APEITE AND GEN WEAKNESS. DX A-FIB WITH RVR. PT REMAINS UNCONTROLLED A-FIB HR 120-150 CHILD WELFARE SOCIAL WORKER IS AWARE. PT ON METOPROLOL AND HAS PRN METOPROLOL IVP FOR HR >130. IV ON LW 20G SL. RFA 18G SL. RFA 20G IVF D51/2NS AT 40ML/H. PER REPORT PT HAS MOMENTS OF CONFUSION WHERE SHE TRIES TO WALK OUT. BED ALARM IS ON. WILL REDIRECT NEEDED. CALL LIGHT WITHIN REACH. SAFETY MEASURES ARE IN PLACE. WILL CONTINUE TO MONITOR.
[2021-06-15] MEDS: METOPROLOL 50 MG TAB PO SCH ×2 (20:18→20:34)
--- NOTE | 2021-06-15 20:34 | NUR ---
HR 144 UNCON A-FIB, BP 120/89 PT REFUSING KYLE MEDICATIONS DR. BARRAGAN MADE AWARE. WILL CONTINUE TO MONITOR.
--- NOTE | 2021-06-15 21:17 | NUR ---
PATIENT IS DIFFICULT TO REDIRECT. PATIENT KEEPS TAKING EKG LEADS OFF AND DOES NOT FOLLOW DIRECTION. EKG LEADS REAPPLIED SAFETY MEASURES ARE IN PLACE. WILL CONTINUE TO MONITOR.
--- NOTE | 2021-06-15 22:30 | NUR ---
TELE REAPPLIED. PT APPEARS TO BE ASLEEP WITH EYES CLOSED. CHEST RISE AND FALL NOTED. WILL CONTINUE TO MONITOR.
[2021-06-16] VITALS (12 sets, daily range): BP systolic 93–129; BP diastolic 57–96
--- NOTE | 2021-06-16 | NUR ---
VITAL SIGNS ARE WITHIN NORMAL LIMITS EXCEPT HR REMAINS BETWEEN 120-150 BPM. REAPPLIED TELE MONITOR. ASSISTED PT TO TURN. ALL NEEDS MET. WILL CONTINUE TO MONITOR.
--- NOTE | 2021-06-16 02:00 | NUR ---
PATIENT IS AWAKE ASKING TO GO HOME. REDIRECT PATIENT. PT WAS REPOSITION IN BED FOR COMFORT. TELE MONITOR REAPPLIED. ALL SAFETY MEASURES ARE IN PLACE. WILL CONTINUE TO MONITOR.
--- NOTE | 2021-06-16 05:05 | NUR ---
PATIENT WAS CLEANED AND REPOSITION WITH ASSISTANCE OF ANOTHER RN. PT ABLE TO TURN BY SELF BUT BECOMES COMBATIVE AT TIMES. ALL NEEDS MET. WILL CONTINUE TO MONITOR.
--- NOTE | 2021-06-16 07:29 | NUR ---
GAVE BEDSIDE REPORT TO DAY RN. PT ENDORSED IN STABLE CONDITION.
--- NOTE | 2021-06-16 07:35 | NUR ---
RECEIVED PATIENT REPORT FROM MUSIC INSTRUCTOR NURSE FOR CONTINUITY OF CARE. PT ADMITTED FOR AFIB, RVR. PT IS AOX2, SPEAKS BELARUSIAN. RESPIRATIONS EVEN AND UNLABORED. ON ROOM AIR. NO RESPIRATORY DISTRESS NOTED. SKIN IS WARM, DRY, AND INTACT. IV SITE ON 20 G LW AND 20 G RFA. INFUSING FLUIDS WELL. INTACT AND PATENT. ABD IS SOFT, FLAT, AND NONDISTENDED. BOWEL SOUNDS ACTIVE IN ALL QUADRANTS. FLACC 0. FAMILY AT BEDSIDE. PLAN OF CARE DISCUSSED. SAFETY PRECAUTIONS IN PLACE. CALL LIGHT WITHIN REACH. WILL CONTINUE TO MONITOR.
[2021-06-16] MEDS: METOPROLOL 50 MG TAB PO SCH ×2 (08:05→20:37)
[2021-06-16] MEDS: APIXABAN 2.5 MG TAB PO SCH ×2 (08:05→20:37)
[2021-06-16] MEDS: LORazepam 2 MG/ML VIAL IM/IVP PRN ×3 (08:08→20:57)
--- NOTE | 2021-06-16 08:08 | NUR ---
PATIENT YELLING AND SHOWING SIGNS OF AGITATION. ADMINISTERED ATIVAN PRN PER MD ORDERED.
[2021-06-16] MEDS: METOPROLOL 5 MG/5 ML VIAL IV PRN ×2 (08:17→18:40)
[2021-06-16 09:17] LABS: BASOPHILS % (AUTO) 0.4 % (0.0-2.0); EOSINOPHILS % (AUTO) 0.6 % (0.0-4.0); LYMPHOCYTES # (AUTO) 0.6 K/uL (2.5-16.5); LYMPHOCYTES % (AUTO) 7.6 % (20.5-51.1); MEAN CORPUSCULAR HEMOGLOBIN 31 pg (27-31); MEAN CORPUSCULAR HGB CONC 33 g/dL (33-37); MEAN CORPUSCULAR VOLUME 92.1 fL (80-94); MONOCYTES # (AUTO) 0.8 K/uL (0.8-1.0); MONOCYTES % (AUTO) 11.2 % (1.7-9.3); NEUTROPHILS # (AUTO) 5.8 K/uL (1.8-7.7); NEUTROPHILS % (AUTO) 80.2 % (42.2-75.2); PLATELET COUNT (AUTO) 225 K/uL (140-450); RED BLOOD CELL COUNT(AUTO) 3.91 MIL/uL (4.20-5.40); RED CELL DISTRIBUTION WIDTH 14.5 % (11.6-13.7); WHITE BLOOD COUNT (AUTO) 7.2 K/uL (4.8-10.8)
[2021-06-16] MEDS: FUROSEMIDE 40 MG/4 ML VIAL IVP SCH ×2 (09:24→16:18)
--- NOTE | 2021-06-16 09:33 | NUR ---
ALL SCHEDULED MEDS GIVEN. PT IS STABLE. NO DISTRESS NOTED. WILL CONTINUE TO MONITOR
--- NOTE | 2021-06-16 09:45 | NUR ---
DR. PRIEST AT PATIENT'S BEDSIDE
[2021-06-16 09:54] LABS: ALBUMIN 3.2 g/dL (3.4-5.0); ANION GAP 13.4 (8-16); ASPARTATE AMINOTRANSFERASE 81 U/L (15-37); CARBON DIOXIDE 22.2 mmol/L (21-32); CHLORIDE 105 mmol/L (98-107); CREATININE 0.9 mg/dL (0.6-1.3); GLUCOSE 174 mg/dL (74-106); POTASSIUM 3.6 mmol/L (3.5-5.1); SODIUM SERUM 137 mmol/L (136-145); TOTAL BILIRUBIN 1.1 mg/dL (0.0-1.0); UREA NITROGEN, BLOOD 41 mg/dL (7-18)
--- NOTE | 2021-06-16 10:35 | NUR ---
PLACED 2L NC ON PATIENT. O2 SATURATION WAS AT 87%. CURRENTLY AT 97% NOW.
[2021-06-16] MEDS: DEXT 5% / NACL 0.45% 1,000 ML IV SCH (12:34)
--- NOTE | 2021-06-16 12:55 | NUR ---
CLEANED PATIENT AND KEPT PATIENT DRY. NO DISTRESS NOTED. FLACC 0. PATIENT IS STABLE. WILL CONTINUE TO MONITOR.
--- NOTE | 2021-06-16 16:03 | NUR ---
PATIENT SHOWING SIGNS OF AGITATION. ADMINISTERED ATIVAN PRN PER MD ORDERED.
--- NOTE | 2021-06-16 16:19 | NUR ---
PATIENT REFUSING PLACEMENT OF NC. O2 SATURATION IS AT 92%. WILL KEEP ON ROOM AIR.
--- NOTE | 2021-06-16 19:30 | NUR ---
RECEIVED PATIENT REPORT FROM DAY SHIFT NURSE FOR CONTINUITY OF CARE. PT IS AOX2, SPEAKS PORTUGUESE, CONFUSED, DEMENTED, RESPIRATIONS EVEN AND UNLABORED, ON ROOM AIR, NO RESPIRATORY DISTRESS NOTED. SKIN IS WARM, DRY, AND INTACT. IV SITE ON 20 G LEFT WRIST, 20 G RIGHT FA, 18 G RIGHT FA, INFUSING FLUIDS WELL, INTACT AND PATENT. ABD IS SOFT, FLAT, AND NONDISTENDED, BOWEL SOUNDS ACTIVE IN ALL QUADRANTS. FLACC 0. PLAN OF CARE DISCUSSED. SAFETY PRECAUTIONS IN PLACE. CALL LIGHT WITHIN REACH. WILL CONTINUE TO MONITOR.
--- NOTE | 2021-06-16 19:44 | NUR ---
ENDORSED TO BARREL DRUM CUTTER NURSE FOR CONTINUITY OF CARE. PT IS STABLE.
--- NOTE | 2021-06-16 20:37 | NUR ---
AGITATED, REFUSED MEDICATION
--- NOTE | 2021-06-16 20:57 | NUR ---
ADMINISTERED ATIVAN 0.5MG IVP PRN
[2021-06-17] VITALS (19 sets, daily range): BP systolic 106–150; BP diastolic 59–108
[2021-06-17] MEDS: LORazepam 2 MG/ML VIAL IM/IVP PRN ×2 (02:37→14:45)
--- NOTE | 2021-06-17 07:30 | NUR ---
RECEIVED BEDSIDE REPORT FROM CONSULTING PSYCHIATRIST NURSE ABRAHAN RN, PT RESTING, NO DISTRESS NOTED, AAOX0, DROWSY. PT ON ROOM AIR, NO SOB NOTED, IV TO RIGHT FA 20G SITE IS TENDER, IV TO R FA 18G SITE IS BRUISED, WILL TAKE OFF AND PUT NEW IV. L WRIST 20G PATENT INTACT, D5 1/2 NS @ 40ML/HR INFUSING WELL. CARDIAC RYTHM IS UNCONTROLLED AFIB ON THE MONITOR. INITIAL ASSESSMENT DONE, ALL SAFETY PRECAUTION MET, CALL LIGHT WITHIN REACH, WILL CONTINUE TO MONITOR.
--- NOTE | 2021-06-17 07:30 | NUR ---
WILL ENDORSE TO DAY SHIFT NURSE FOR CONTINUITY OF CARE
[2021-06-17] MEDS: APIXABAN 2.5 MG TAB PO SCH ×2 (09:00→21:23)
[2021-06-17] MEDS: METOPROLOL 50 MG TAB PO SCH ×2 (09:00→21:23)
[2021-06-17] MEDS ORDERED: NACL 0.9% 500 ML IV SCH (10:05)
[2021-06-17 10:50] LABS: BASOPHILS % (AUTO) 0.2 % (0.0-2.0); EOSINOPHILS # (AUTO) 0.1 K/uL (0-0.4); HEMOGLOBIN 12.7 g/dL (12.0-16.0); LYMPHOCYTES # (AUTO) 0.7 K/uL (2.5-16.5); LYMPHOCYTES % (AUTO) 9.1 % (20.5-51.1); MEAN CORPUSCULAR HEMOGLOBIN 31 pg (27-31); MEAN CORPUSCULAR HGB CONC 33 g/dL (33-37); MEAN CORPUSCULAR VOLUME 91.4 fL (80-94); MONOCYTES # (AUTO) 0.9 K/uL (0.8-1.0); MONOCYTES % (AUTO) 11.9 % (1.7-9.3); NEUTROPHILS # (AUTO) 6.1 K/uL (1.8-7.7); NEUTROPHILS % (AUTO) 77.8 % (42.2-75.2); PLATELET COUNT (AUTO) 250 K/uL (140-450); RED BLOOD CELL COUNT(AUTO) 4.16 MIL/uL (4.20-5.40); RED CELL DISTRIBUTION WIDTH 14.4 % (11.6-13.7); WHITE BLOOD COUNT (AUTO) 7.9 K/uL (4.8-10.8)
[2021-06-17 11:06] LABS: ALBUMIN 3.3 g/dL (3.4-5.0); ANION GAP 14.2 (8-16); ASPARTATE AMINOTRANSFERASE 59 U/L (15-37); CARBON DIOXIDE 25.6 mmol/L (21-32); CHLORIDE 102 mmol/L (98-107); CREATININE 0.8 mg/dL (0.6-1.3); GLUCOSE 131 mg/dL (74-106); MAGNESIUM 1.7 mg/dL (1.8-2.4); PHOSPHORUS 2.7 mg/dL (2.5-4.9); SODIUM SERUM 139 mmol/L (136-145); TOTAL BILIRUBIN 1.2 mg/dL (0.0-1.0); UREA NITROGEN, BLOOD 31 mg/dL (7-18)
[2021-06-17 11:07] LABS: PROTHROMBIN TIME 12.7 secs (10.8-13.4)
[2021-06-17] MEDS ORDERED: AMIODARONE 150 MG in DEXTROSE 5% 100 ML IV SCH (11:30)
[2021-06-17 11:50] LABS: POTASSIUM 2.8 mmol/L (3.5-5.1)
[2021-06-17] MEDS ORDERED: AMIODARONE 450 MG in DEXTROSE 5% 250 ML IV SCH (12:00)
--- NOTE | 2021-06-17 12:15 | NUR ---
PAGED DR ARIAS FOR POTASSIUM 2.8, AWAITING FOR CALL BACK.
[2021-06-17] MEDS ORDERED: KCL 20 MEQ/WATER INJ PREMIX 200 ML IV SCH ×2 (12:45→18:00)
--- NOTE | 2021-06-17 12:45 | NUR ---
CALLED DR. ARIAS REGARDING PT POTASSIUM 2.8, PER DR ARIAS TO ORDER KRIDER 40MEQ NOW AND 40 MEQ AFTER 4HRS. WILL FOLLOW AND CONTINUE WITH ORDERS.
[2021-06-17] MEDS: DEXT 5% / NACL 0.45% 1,000 ML IV SCH (13:38)
[2021-06-17] MEDS ORDERED: POTASSIUM CHLORIDE 40 MEQ, LIDOCAINE 1% 25 MG in NACL 0.9% 250 ML IV SCH ×2 (14:00→18:00)
--- NOTE | 2021-06-17 15:00 | NUR ---
NGT INSERTED PER DR ARIAS, AWAITING FOR CXR FOR CONFIRMATION.
--- NOTE | 2021-06-17 15:35 | NUR ---
06/17/2021 RD INITIAL ASSESSMENT COMPLETED PLEASE REFER TO NUTRITION ASSESSMENT UNDER CARE ACTIVITY FOR ESTIMATED NUTRITIONAL NEEDS. RECOMMEND: VITAL AF 1.2 @ GOAL RATE OF 40 ML/HR. THIS WILL PROVIDE 1152 KCALS AND 72 GMS PRO/DAY TO MEET 100% ESTIMATED ENERGY AND 106% ESTIMATED PRO NEEDS PER DAY BEGIN AT 10 ML/HR AND INCREASE RATE BY 10 ML/HR EVERY 8 HOURS UNTIL GOAL RATE IS REACHED AVOID USING GASTRIC RESIDUALS TO INDICATE FEEDING TOLERANCE, INSTEAD USE PASSAGE OF STOOL & GAS, ABDOMINAL PAIN, NAUSEA, DIARRHEA & ABDOMINAL DISTENTION RD TO FOLLOW-UP IN 2-3 DAYS PATIENT IS HIGH RISK. STEFANY LLANOS, RD
--- NOTE | 2021-06-17 19:30 | NUR ---
ENDORSED PT TO BUSINESS TEST ANALYST NURSE FOR CONTINUOUS OF CARE.
[2021-06-18] VITALS (24 sets, daily range): BP systolic 91–152; BP diastolic 59–115
--- NOTE | 2021-06-18 00:20 | NUR ---
Turn & reposition q2h as ordered, No pain or discomfort noted at this time, Gets agitated at times, will continue to monitor Vital Signs q1h as ordered.
--- NOTE | 2021-06-18 07:15 | NUR ---
RECEIVED PATIENT REPORT FROM SRIDHAR EARLY FOR CONTINUITY OF CARE. PT IS AOX2. NO ACUTE SIGNS OF RESPIRATORY DISTRESS. NO NGT IN PLACE, REMOVED BY PT PER NIGHT NURSE. ON 2L NC. SKIN IS WARM, DRY, AND INTACT. [place]ISE MIDLINE IN PLACE. INFUSING AMIODARONE AT 0.5 MG/MIN, AND D5 1/2NS AT 40 ML/HR. INTACT AND PATENT. ABD IS SOFT, FLAT, AND NONDISTENDED. BOWEL SOUNDS ACTIVE IN ALL QUADRANTS. F/C IN PLACE, URINE IS REGAN AND CLOUDY. FLACC 0. SAFETY PRECAUTIONS MET. STANDARD PRECAUTIONS IN PLACE. CALL LIGHT WITHIN REACH. INITIAL ASSESSMENT COMPLETED. WILL CONTINUE TO MONITOR.
--- NOTE | 2021-06-18 09:30 | NUR ---
SEEN AND EXAMINED BY DR PRIEST. DR D/C AMIODARONE DRIP AND ORDERED CARDIZEM DRIP. WILL CONTINUE TO MONITOR.
[2021-06-18 09:59] LABS: BASOPHILS % (AUTO) 0.3 % (0.0-2.0); HEMATOCRIT 40.2 % (36-48); HEMOGLOBIN 13.1 g/dL (12.0-16.0); LYMPHOCYTES # (AUTO) 0.6 K/uL (2.5-16.5); LYMPHOCYTES % (AUTO) 4.8 % (20.5-51.1); MEAN CORPUSCULAR HEMOGLOBIN 30 pg (27-31); MEAN CORPUSCULAR HGB CONC 33 g/dL (33-37); MEAN CORPUSCULAR VOLUME 93.3 fL (80-94); MONOCYTES % (AUTO) 8.3 % (1.7-9.3); NEUTROPHILS # (AUTO) 10.3 K/uL (1.8-7.7); NEUTROPHILS % (AUTO) 86.6 % (42.2-75.2); PLATELET COUNT (AUTO) 205 K/uL (140-450); RED BLOOD CELL COUNT(AUTO) 4.31 MIL/uL (4.20-5.40); RED CELL DISTRIBUTION WIDTH 14.8 % (11.6-13.7); WHITE BLOOD COUNT (AUTO) 11.9 K/uL (4.8-10.8)
[2021-06-18] MEDS ORDERED: DILTIAZEM 25 MG/5 ML VIAL IVP SCH (10:00)
[2021-06-18 10:05] LABS: CARBON DIOXIDE 22.4 mmol/L (21-32); CHLORIDE 103 mmol/L (98-107); CREATININE 0.8 mg/dL (0.6-1.3); GLUCOSE 178 mg/dL (74-106); POTASSIUM 4.4 mmol/L (3.5-5.1); SODIUM SERUM 135 mmol/L (136-145); UREA NITROGEN, BLOOD 31 mg/dL (7-18)
[2021-06-18] MEDS: DILTIAZEM 125 MG in DEXTROSE 5% 100 ML IV SCH ×2 (10:32→21:12)
--- NOTE | 2021-06-18 10:45 | NUR ---
INSERT NGT. PT TOLERATED WELL. DR BARRAGAN ORDERED CXR TO VERIFY NGT PLACEMENT.
[2021-06-18] MEDS: DEXT 5% / NACL 0.45% 1,000 ML IV SCH ×2 (12:35→23:47)
[2021-06-18] MEDS: APIXABAN 2.5 MG TAB PO SCH ×2 (14:00→21:04)
[2021-06-18] MEDS: METOPROLOL 50 MG TAB PO SCH ×2 (14:00→21:05)
--- NOTE | 2021-06-18 19:05 | NUR ---
ENDORSED BEDSIDE REPORT TO SRIDHAR EARLY FOR CONTINUITY OF CARE.
--- NOTE | 2021-06-18 21:10 | NUR ---
Due medications given, tolerated well, will continue to monitor for signs & symptoms of adverse reactions.
[2021-06-18] MEDS: LORazepam 2 MG/ML VIAL IM/IVP PRN (21:46)
[2021-06-19] VITALS (24 sets, daily range): BP systolic 90–131; BP diastolic 41–92
--- NOTE | 2021-06-19 00:20 | NUR ---
Turn & reposition q2H as ordered, No pain or discomfort noted at this time, will continue to monitor vital signs q1h as ordered.
[2021-06-19] MEDS: LORazepam 2 MG/ML VIAL IM/IVP PRN ×3 (02:18→20:26)
[2021-06-19 05:09] LABS: BASOPHILS % (AUTO) 0.1 % (0.0-2.0); EOSINOPHILS % (AUTO) 0.1 % (0.0-4.0); HEMATOCRIT 36.9 % (36-48); LYMPHOCYTES # (AUTO) 0.5 K/uL (2.5-16.5); LYMPHOCYTES % (AUTO) 3.5 % (20.5-51.1); MEAN CORPUSCULAR HEMOGLOBIN 30 pg (27-31); MEAN CORPUSCULAR HGB CONC 33 g/dL (33-37); MEAN CORPUSCULAR VOLUME 93.3 fL (80-94); MONOCYTES # (AUTO) 1.3 K/uL (0.8-1.0); NEUTROPHILS # (AUTO) 12.3 K/uL (1.8-7.7); NEUTROPHILS % (AUTO) 87.3 % (42.2-75.2); PLATELET COUNT (AUTO) 198 K/uL (140-450); RED BLOOD CELL COUNT(AUTO) 3.95 MIL/uL (4.20-5.40); WHITE BLOOD COUNT (AUTO) 14.1 K/uL (4.8-10.8)
[2021-06-19 05:28] LABS: ANION GAP 18.1 (8-16); CARBON DIOXIDE 19.3 mmol/L (21-32); CHLORIDE 103 mmol/L (98-107); CREATININE 1.1 mg/dL (0.6-1.3); GLUCOSE 188 mg/dL (74-106); POTASSIUM 4.4 mmol/L (3.5-5.1); SODIUM SERUM 136 mmol/L (136-145); UREA NITROGEN, BLOOD 41 mg/dL (7-18)
--- NOTE | 2021-06-19 05:30 | NUR ---
Total care given, pericare done, Change gown & linen, made clean, dry & comfortable.
[2021-06-19 05:57] LABS: MAGNESIUM 1.8 mg/dL (1.8-2.4); PHOSPHORUS 2.8 mg/dL (2.5-4.9)
--- NOTE | 2021-06-19 07:25 | NUR ---
Endorse patient to [facility] [employer]. All questions answered.
--- NOTE | 2021-06-19 07:30 | NUR ---
RECEIVED BEDSIDE REPORT FROM DATA CENTER CONSULTANT NURSE SRIDHAR EARLY FOR CONTINUOUS OF CARE. PT ON 2LPM O2 VIA NC, NO SOB NOTED, AWAKE, CONFUSED, ON BILATERAL WRIST SOFT RESTRAINTS, MOORE CATH IN PLACE DRAINING TO GRAVITY. IV TO RIGHT UA MIDLINE DOUBLE LUMEN PATENT INTACT, INFUSING WELL, LEFT WRIST IV 20G PATENT INTACT, LEFT THUMB 24G PATENT INTACT. NGT TO LEFT NARES, IN PLACE WITH FEEDING. INITIAL ASSESSMENT DONE, ALL SAFETY PRECAUTION MET, CALL LIGHT WITHIN REACH, WILL CONTINUE TO MONITOR.
[2021-06-19] MEDS: METOPROLOL 50 MG TAB PO SCH (09:14)
[2021-06-19] MEDS: APIXABAN 2.5 MG TAB PO SCH ×2 (09:14→20:25)
--- NOTE | 2021-06-19 09:14 | NUR ---
DUE MEDICATIONS ADMINISTERED, PT TOLERATED WELL, NO DISTRESS NOTED, MOORE CARE DONE, CHG BATH GIVEN. WILL CONTINUE TO MONITOR.
[2021-06-19] MEDS ORDERED: FUROSEMIDE 20 MG/2 ML VIAL IVP SCH (11:42)
--- NOTE | 2021-06-19 12:03 | NUR ---
06/19/21 RD FOLLOW UP COMPLETED PLEASE REFER TO NUTRITION ASSESSMENT UNDER CARE ACTIVITY FOR ESTIMATED NUTRITIONAL NEEDS. 1. CONTINUE VITAL AF 1.2 WITH A GOAL RATE OF 40ML/HR TOLERATED -WATER FLUSH: 20 ML Q4H OR PER MD -PROVIDES 1152 KCALS AND 72 GMS PRO/DAY, MEETING 100% ESTIMATED ENERGY AND 106% ESTIMATED PRO NEEDS PER DAY 2. MONITOR FOR EDEMA 3. RD TO FOLLOW-UP 2-3 DAYS, HIGH RISK MARKELL VELASCO RD
[2021-06-19] MEDS: DILTIAZEM 30 MG TAB NG SCH ×2 (12:37→16:11)
[2021-06-19] MEDS ORDERED: MAG SULF 2000 MG/WATER PREMIX 50 ML IV SCH (13:00)
--- NOTE | 2021-06-19 13:00 | NUR ---
RECEIVED PHONE CALL FROM DR HILL REGARDING PT ABG RESULT, PER DR HILL TO ORDER D5W WITH 3 AMPS OF BICARB @40CC/HR, ZOSYN 3.375 MG IV Q8H, TROPONIN, REPEAT BLOOD CULTURE, LACTIC ACID, REPEAT UA AND URINE CULTURE. WILL CONTINUE WITH ORDERS.
[2021-06-19] MEDS: PIPERACILLIN/TAZOBACTAM 3.375 GM in DEXTROSE 5% 50 ML IV SCH ×2 (13:41→20:26)
[2021-06-19] MEDS ORDERED: SODIUM BICARBONATE 8.4% 150 MEQ in DEXTROSE 5% 1,000 ML IV SCH (14:00)
[2021-06-19 16:22] LABS: APPEARANCE,URINE SL CLOUDY (CLEAR); BILIRUBIN,URINE NEGATIVE (NEGATIVE); BLOOD, URINE 3+ (NEGATIVE); COLOR,URINE RED (YELLOW); LEUKOCYTE ESTERASE ,URINE 2+ (NEGATIVE); NITRITE, URINE POSITIVE (NEGATIVE); PH,URINE 6.5 (5.0-9.0); UGLUCOSE TRACE (NEGATIVE)
[2021-06-19 16:55] LABS: RBC,URINE TOO NUMEROUS TO COUN /HPF (0-5)
[2021-06-19] MEDS ORDERED: ALBUTEROL SULFATE/IPRATROPIU 3 ML SOL IH PRN (17:35)
--- NOTE | 2021-06-19 17:36 | NUR ---
CALLED DR HILL REGARDING PT HAS MORE WORK OF BREATHING AND AUDIBLE WHEEZING, PER TO ORDER CT HEAD, PUT PT ON HI FLOW O2, ORDER BREATHING TREATMENT, AMMONIA LEVEL FOR TOMORROW. WILL CONTINUE WITH ORDERS.
--- NOTE | 2021-06-19 19:20 | NUR ---
RECEIVED REPORT FROM DAY SHIFT NURSE, ASSUMED CARE. PATIENT NOTED TO HAVE TACHYPNEA ON HIGH FLOW AT 25 LITERS, 3% FI02. 02 SAT AT 94%. RT AT BEDSIDE COMPLETING ROUNDS. IV FLUID DEXTROSE 5% RUNNING AT 40 ML/JR VIA RIGHT UA MIDLINE. NG TUBE OF LEFT NARES RUNNING VITAL AF AT 40 ML HR. MOORE CATHETER IN PLACE WITH VISIBLE DARK RED URINE NOTED. SOFT WRIST RESTRAINTS IN PLACE. WILL CONTINUE TO CLOSELY MONITOR. ALL SAFETY MEASURES IN PLACE. Addendum: 06/19/21 at 2314 by Misty Suero RN FIO2 35%
--- NOTE | 2021-06-19 19:30 | NUR ---
ENDORSED PT TO TECHNICAL MANAGER NURSE FOR CONTINUOUS OF CARE.
--- NOTE | 2021-06-19 19:45 | NUR ---
PATIENT TAKEN TO RADIOLOGY BY ME AND RADIOLOGY TECHS, CT OF HEAD COMPLETED. PATIENT RETURNED IN NO ACUTE DISTRESS. VSS, PATIENT PUT BACK ON HIGH FLOW AT25 L. WILL CONTINUE TO CLOSELY MONITOR.
[2021-06-19] MEDS: METOPROLOL 25 MG TAB NG SCH (20:23)
--- NOTE | 2021-06-19 21:27 | NUR ---
PATIENT OBSERVED SLEEPING IN BED WITH NO SIGNS OF ACUTE DISTRESS, BREATHING RATE 27. RT AT BEDSIDE ASSESSING PATIENT WITH NO NEW INTERVENTIONS OR RECOMMENDATIONS. JOHN VELÁSQUEZ CALLED FOR UPDATE, PATIENT STATUS WAS REPORTED TO SON. ALL SAFETY MEASURES IN PLACE, WILL CONTINUE TO MONITOR AND FOLLOW POC.
--- NOTE | 2021-06-19 23:52 | NUR ---
PATIENT WITH EYES CLOSED, DOES NOT OPEN EYES SPONTANEOUSLY TO NAME OR LIGHT SHAKING, NO SIGNS OF ACUTE DISTRESS NOTED. BREATHING RR 30 ON HIGH FLOW 30 L, FIO2 35%. RUNNING SODIUM BICARBONATE 150 MEQ IN D5 BAG AT 40 ML HR VIA PARADISE MIDLINE. ALL SAFETY MEASURES IN PLACE, WILL CONTINUE TO CLOSELY MONITOR.
[2021-06-20] VITALS (23 sets, daily range): BP systolic 92–126; BP diastolic 46–95
--- NOTE | 2021-06-20 01:56 | NUR ---
PATIENT NOTED TO DESATURATE TO MID 80'S, RT NOTIFIED AND INCREASED FIO2 TO 45%. SATURATION NOTED TO INCREASE TO 90%. HR 78, RR 25, BP 110/62. WILL CONTINUE TO CLOSELY MONITOR AND FOLLOW POC. ALL SAFETY MEASURES IN PLACE.
--- NOTE | 2021-06-20 02:45 | NUR ---
PATIENT OBSERVED DESATURATING TO 84-85%, RT NOTIFIED, FIO2 INCREASED TO 60% BY RT. PATIENT SATURATION INCREASED TO 92%, VSS, NO SIGNS OF ACUTE DISTRESS NOTED. WILL CONTINUE TO CLOSELY MONITOR.
--- NOTE | 2021-06-20 03:00 | NUR ---
MORNING CARE PROVIDED, PATIENT REPOSITIONED, BM SMEARED NOTED. 300 CC RESIDUAL FROM NG TUBE NOTED, STOPPED THE FEEDING. O2 SAT 97% ON HI FLOW, FI02 60%. NO SIGNS OF ACUTE DISTRESS NOTED. WILL CONTINUE TO CLOSELY MONITOR AND FOLLOW POC.
[2021-06-20] MEDS: PIPERACILLIN/TAZOBACTAM 3.375 GM in DEXTROSE 5% 50 ML IV SCH ×3 (04:12→20:52)
--- NOTE | 2021-06-20 04:39 | NUR ---
PATIENT CONTINUES WITH EYES CLOSED, NON VERBAL, DOES NOT RESPOND TO NAME. VSS, O2 SAT 95%, WITH HIGH FLOW FIO2 60% AND 30 L. NO SIGNS OF ACUTE DISTRESS NOTED. ALL SAFETY MEASURES IN PLACE. WILL CONTINUE TO MONITOR AND FOLLOW POC.
--- NOTE | 2021-06-20 05:44 | NUR ---
PATIENT NOTED TO HAVE LABORED BREATHING, 02 SAT 99%, RR 16, HR 78 ON HIGH FLOW O2 AT FIO2 60%. RT NOTIFIED, AT BEDSIDE OBTAINING ABG FOR FURTHER ASSESSMENT. WILL CONTINUE TO CLOSELY MONITOR.
--- NOTE | 2021-06-20 06:16 | NUR ---
PER ANDREW RT, ABG RESULTS ARE WITHIN NORMAL LIMIT, INCREASED FIO2 TO 100% AND 40 LITERS OF O2. HE NOTIFIED THE ONCOMING RT TEAM REGARDING PATIENTS CONDITION AND WILL DETERMINE OTHER POSSIBLE INTERVENTIONS. PATIENT O2 SAT CURRENTLY 97%, RR 16, AND HR 78. WILL CONTINUE TO CLOSELY MONITOR AND FOLLOW POC.
[2021-06-20 06:24] LABS: BASOPHILS % (AUTO) 0.1 % (0.0-2.0); EOSINOPHILS % (AUTO) 0.1 % (0.0-4.0); HEMATOCRIT 37.7 % (36-48); HEMOGLOBIN 12.5 g/dL (12.0-16.0); LYMPHOCYTES # (AUTO) 0.4 K/uL (2.5-16.5); LYMPHOCYTES % (AUTO) 3.1 % (20.5-51.1); MEAN CORPUSCULAR HEMOGLOBIN 31 pg (27-31); MEAN CORPUSCULAR HGB CONC 33 g/dL (33-37); MEAN CORPUSCULAR VOLUME 93.3 fL (80-94); MONOCYTES # (AUTO) 0.8 K/uL (0.8-1.0); MONOCYTES % (AUTO) 5.9 % (1.7-9.3); NEUTROPHILS % (AUTO) 90.8 % (42.2-75.2); PLATELET COUNT (AUTO) 180 K/uL (140-450); RED BLOOD CELL COUNT(AUTO) 4.04 MIL/uL (4.20-5.40); RED CELL DISTRIBUTION WIDTH 14.9 % (11.6-13.7); WHITE BLOOD COUNT (AUTO) 13.2 K/uL (4.8-10.8)
[2021-06-20 06:51] LABS: MAGNESIUM 2.2 mg/dL (1.8-2.4); PHOSPHORUS 3.2 mg/dL (2.5-4.9)
--- NOTE | 2021-06-20 07:14 | NUR ---
RECEIVED BEDSIDE REPORT FROM FEMI EARLY FOR CONTINUITY OF CARE. PT IS LYING SUPINE IN THE BED, LETHARGIC, AA0X0. ON HIGH FLOW AT 40L, 100%, SPO2 99%. PT BREATHING LABORED AT RATE OF 20. NGT TO L NARE, FEEDING HELD FOR HIGH RESIDUALS. L THUMB 20G IV PATENT INTACT. PARADISE MIDLINE PATENT INTACT, RUNNING SODIUM BICARBONATE AT 40 ML/HR. F/C IN PLACE, DRAINING TO GRAVITY. SKIN INTACT. L ARM TENDER AND SWOLLEN. STANDARD PRECAUTIONS IN PLACE. ALL SAFETY PRECAUTIONS MET. CALL LIGHT WITHIN REACH. INITIAL ASSESSMENT COMPLETED. WILL CONTINUE TO MONITOR.
--- NOTE | 2021-06-20 07:14 | NUR ---
REPORT GIVEN TO DAY SHIFT NURSE FOR CONTINUITY OF CARE. PATIENT WITH STABLE VS, NO SIGNS OF ACUTE DISTRESS AT THIS TIME.
[2021-06-20] MEDS: DILTIAZEM 30 MG TAB NG SCH ×3 (09:03→16:56)
[2021-06-20] MEDS: METOPROLOL 25 MG TAB NG SCH ×2 (09:05→21:00)
[2021-06-20] MEDS: APIXABAN 2.5 MG TAB PO SCH ×2 (09:06→20:52)
--- NOTE | 2021-06-20 09:30 | NUR ---
ADMINISTERED SCHEDULED MEDS. NADR. RESIDUAL 0CC, STARTED FEEDING AT 10 ML/HR. WILL CONTINUE TO MONITOR.
[2021-06-20 10:01] LABS: ANION GAP 22.4 (8-16); CARBON DIOXIDE 16.4 mmol/L (21-32); CHLORIDE 102 mmol/L (98-107); CREATININE 1.3 mg/dL (0.6-1.3); GLUCOSE 179 mg/dL (74-106); POTASSIUM 4.8 mmol/L (3.5-5.1); SODIUM SERUM 136 mmol/L (136-145); UREA NITROGEN, BLOOD 55 mg/dL (7-18)
--- NOTE | 2021-06-20 10:40 | NUR ---
SEEN AND EXAMINED BY DR PRIEST.
[2021-06-20] MEDS ORDERED: FUROSEMIDE 100 MG/10 ML VIAL ONE (11:13)
[2021-06-20] MEDS ORDERED: FUROSEMIDE 100 MG/10 ML VIAL IV SCH (11:30)
--- NOTE | 2021-06-20 11:30 | NUR ---
DR PRIEST ORDERED 80 MG LASIX ONCE NOW. DR PRIEST SPOKE WITH FAMILY ABOUT RESUSCITATION STATUS. WILL CONTINUE TO MONITOR
--- NOTE | 2021-06-20 12:30 | NUR ---
MOVED PT FROM BED 5 TO SIX. RN PRESENT - NO DISTRESS NOTED.
--- NOTE | 2021-06-20 12:30 | NUR ---
PT TRANSFERRED FROM ICU 5 TO ICU 6. TOLERATED WELL. WILL CONTINUE TO MONITOR.
--- NOTE | 2021-06-20 12:40 | NUR ---
RESIDUAL 0CC. INCREASED FEEDING TO 20 CC/HR. WILL CONTINUE TO MONITOR.
--- NOTE | 2021-06-20 12:45 | NUR ---
SEEN AND EXAMINED BY DR HILL. NEW ORDERS CARRIED OUT. WILL CONTINUE TO MONITOR.
--- NOTE | 2021-06-20 13:00 | NUR ---
FAMILY AT BEDSIDE.
[2021-06-20] MEDS: METOCLOPRAMIDE 10 MG/2 ML INJ VIAL IVP SCH ×2 (13:27→16:58)
[2021-06-20] MEDS: SODIUM BICARBONATE 8.4% PFS 50 MEQ/50 ML SYR IVP SCH ×2 (13:27→18:03)
--- NOTE | 2021-06-20 15:40 | NUR ---
DR ISLAS CALLED BACK, NOTIFIED THAT PT SON WANTS TO TALK TO . STATED UNDERSTANDING AND WILL CALL PT FAMILY.
--- NOTE | 2021-06-20 16:07 | NUR ---
RECEIVED PATIENT IN BED, SLEEPING, NGT INFUSING, VSS. MOORE CATH INTACT, WILL CONTINUE TO MONITOR.
[2021-06-20] MEDS: FUROSEMIDE 40 MG/4 ML VIAL IVP SCH (16:56)
--- NOTE | 2021-06-20 17:30 | NUR ---
PT CLEANED AND REPOSITIONED. TOLERATED WELL. WILL CONTINUE TO MONITOR.
--- NOTE | 2021-06-20 18:00 | NUR ---
RECEIVED BEDSIDE REPORT FROM DEAN EARLY FOR CONTINUITY OF CARE.
--- NOTE | 2021-06-20 18:00 | NUR ---
SPOKE WITH DR PRIEST ON THE PHONE ABOUT PT'S FAMILY'S REQUESTS ABOUT RESUSCITATION STATUS. WILL CALL FAMILY AGAIN.
--- NOTE | 2021-06-20 19:15 | NUR ---
ENDORSED BEDSIDE REPORT TO FEMI EARLY FOR CONTINUITY OF CARE.
--- NOTE | 2021-06-20 19:15 | NUR ---
RECEIVED REPORT FROM DAY SHIFT NURSE, ASSUMED CARE. PATIENT OBSERVED IN BED WITH EYES CLOSED, AOX0, DOES NOT RESPOND TO NAME AND DOES NOT OPEN EYES SPONTANEOUSLY. PATIENT ON HI FLOW O2 AT FIO2 100% AND 40 LITERS, O2 SAT 99%, VS ELEVATED HEART RATE AT 111, NO FEVER AT THE TIME. NG TUBE OF LEFT NARES PRESENT RUNNING VITAL AF AT 20 ML/HR, NO RESIDUAL AT THE MOMENT. RIGHT BRODIE MIDLINE PRESENT WITH D5 1/2 NS RUNNING AT 2 ML/HR TKO. LEFT ARM NOTED TO BE SWOLLEN. F/C PRESENT WITH YELLOW URINE PRESENT. ALL SAFETY MEASURES IN PLACE, WILL CONTINUE TO CLOSELY MONITOR AND FOLLOW POC.
--- NOTE | 2021-06-20 21:00 | NUR ---
2100 MEDICATIONS ADMINISTERED, METOPROLOL HELD DUE TO SBP BELOW 110. PATIENT IN NO APPARENT ACUTE DISTRESS. CONTINUES ON HI FLOW 100% FIO2, 40 LITERS. ALL SAFETY MEASURES IN PLACE. WILL CONTINUE TO MONITOR.
[2021-06-21] VITALS (24 sets, daily range): BP systolic 91–139; BP diastolic 51–98
[2021-06-21] MEDS: LORazepam 2 MG/ML VIAL IM/IVP PRN ×2 (00:20→05:52)
[2021-06-21] MEDS: SODIUM BICARBONATE 8.4% PFS 50 MEQ/50 ML SYR IVP SCH ×4 (00:22→17:32)
[2021-06-21] MEDS: METOCLOPRAMIDE 10 MG/2 ML INJ VIAL IVP SCH ×4 (00:22→17:32)
--- NOTE | 2021-06-21 00:30 | NUR ---
PATIENT OBSERVED TO BE RESTLESS IN BED WITH ELEVATED HEART RATE ABOVE 130, NO ACUTE DISTRESS NOTED. ADMINISTERED ATIVAN PER PRN ORDERS. O2 SAT ABOVE 90%. CLEANED AND REPOSITIONED PATIENT. WILL CONTINUE TO MONITOR AND FOLLOW POC.
--- NOTE | 2021-06-21 02:54 | NUR ---
PATIENT OBSERVED SLEEPING COMFORTABLY WITH EYES CLOSED, HR 115 AND O2 SAT 99%. CONTINUES ON HI FLOW WITH 40 LITERS AND FIO2 80%. WILL CONTINUE TO CLOSELY MONITOR AND FOLLOW POC.
--- NOTE | 2021-06-21 03:24 | NUR ---
INCREASED TUBE FEEDING TO 30 ML/HR. WILL CONTINUE MONITORING FEEDING RESIDUAL.
--- NOTE | 2021-06-21 05:30 | NUR ---
TUBE FEEDING RESIDUAL 90 ML, CONTINUED TUBE FEEDING AT 30 ML/HR. PATIENT NOTED TO BE RESTLESS WITH INCREASING HR, ADMINISTERED ATIVAN PER PRN ORDERS FOR AGITATION. PATIENT IN NO APPARENT ACUTE DISTRESS. O2 SAT 100% ON HI FLOW FIO2 80, 40 LITERS. WILL CONTINUE TO CLOSELY MONITOR AND FOLLOW POC.
[2021-06-21 05:43] LABS: BASOPHILS % (AUTO) 0.1 % (0.0-2.0); EOSINOPHILS % (AUTO) 0.1 % (0.0-4.0); HEMATOCRIT 38.7 % (36-48); HEMOGLOBIN 12.9 g/dL (12.0-16.0); LYMPHOCYTES # (AUTO) 0.5 K/uL (2.5-16.5); LYMPHOCYTES % (AUTO) 4.1 % (20.5-51.1); MEAN CORPUSCULAR HEMOGLOBIN 31 pg (27-31); MEAN CORPUSCULAR HGB CONC 33 g/dL (33-37); MEAN CORPUSCULAR VOLUME 92.1 fL (80-94); MONOCYTES % (AUTO) 7.6 % (1.7-9.3); NEUTROPHILS # (AUTO) 11.3 K/uL (1.8-7.7); NEUTROPHILS % (AUTO) 88.1 % (42.2-75.2); PLATELET COUNT (AUTO) 217 K/uL (140-450); WHITE BLOOD COUNT (AUTO) 12.9 K/uL (4.8-10.8)
[2021-06-21] MEDS: PIPERACILLIN/TAZOBACTAM 3.375 GM in DEXTROSE 5% 50 ML IV SCH ×3 (05:51→20:30)
[2021-06-21 06:11] LABS: ANION GAP 11.1 (8-16); CARBON DIOXIDE 35.6 mmol/L (21-32); CHLORIDE 100 mmol/L (98-107); CREATININE 1.2 mg/dL (0.6-1.3); GLUCOSE 165 mg/dL (74-106); SODIUM SERUM 144 mmol/L (136-145); UREA NITROGEN, BLOOD 53 mg/dL (7-18)
[2021-06-21 06:15] LABS: POTASSIUM 2.7 mmol/L (3.5-5.1)
[2021-06-21 06:36] LABS: MAGNESIUM 1.8 mg/dL (1.8-2.4); PHOSPHORUS 2.1 mg/dL (2.5-4.9)
[2021-06-21] MEDS ORDERED: KCL 20 MEQ/WATER INJ PREMIX 200 ML IV SCH (06:40)
--- NOTE | 2021-06-21 06:50 | NUR ---
RECEIVED CRITICAL LAB REPORT FOR K LEVEL 2.7. CALLED , SPOKE WITH DR. HILL. NEW ORDERS RECEIVED AND CARRIED OUT.
--- NOTE | 2021-06-21 06:55 | NUR ---
K DUR POTASSIUM CHLORIDE 40 MEQ ORDERED A ONE TIME ORDER. ADMINISTERED FIRST BAG OF POTASSIUM CHLORIDE 20 MEQ. PATIENT IN NO ACUTE DISTRESS. O2 SAT 92%. WILL CONTINUE TO MONITOR AND FOLLOW POC.
--- NOTE | 2021-06-21 07:15 | NUR ---
RECEIVED BEDSIDE REPORT FROM FEMI EARLY FOR CONTINUITY OF CARE. PT IS LYING SUPINE IN THE BED, LETHARGIC, AA0X0. ON HIGH FLOW AT 40L, 70%. NO LABORED BREATHING. NGT TO L NARE, INFUSING VITAL AF 1.2 AT 30 ML/HR W/ [id number] FLUSH 20 ML Q4H. L THUMB 20G IV PATENT INTACT. PARADISE MIDLINE PATENT INTACT, RUNNING NS AT 2 ML/HR. F/C IN PLACE, DRAINING TO GRAVITY. SKIN INTACT. STANDARD PRECAUTIONS IN PLACE. ALL SAFETY PRECAUTIONS MET. CALL LIGHT WITHIN REACH. INITIAL ASSESSMENT COMPLETED. WILL CONTINUE TO MONITOR.
--- NOTE | 2021-06-21 07:19 | NUR ---
GAVE REPORT TO DAY SHIFT NURSE FOR CONTINUITY OF CARE. PATIENT CURRENTLY IN NO ACUTE DISTRESS O2 SAT AT 100%.
--- NOTE | 2021-06-21 08:00 | NUR ---
XRAY AT BEDSIDE.
[2021-06-21] MEDS: DILTIAZEM 30 MG TAB NG SCH ×3 (09:00→17:32)
[2021-06-21] MEDS: APIXABAN 2.5 MG TAB PO SCH ×2 (09:00→20:30)
[2021-06-21] MEDS: FUROSEMIDE 40 MG/4 ML VIAL IVP SCH (09:00)
[2021-06-21] MEDS: METOPROLOL 25 MG TAB NG SCH ×2 (09:00→21:00)
--- NOTE | 2021-06-21 11:00 | NUR ---
SEEN AND EXAMINED BY DR PRIEST. ORDERS CARRIED OUT.
[2021-06-21] MEDS ORDERED: POTASSIUM CHLORIDE 20% 40 MEQ/15 ML UDC GT SCH ×2 (11:10→19:15)
--- NOTE | 2021-06-21 12:00 | NUR ---
SEEN AND EXAMINED BY DR HILL.
[2021-06-21] MEDS ORDERED: MAG SULF 2000 MG/WATER PREMIX 50 ML IV SCH (12:05)
[2021-06-21] MEDS ORDERED: POTASSIUM CHLORIDE 20% 40 MEQ/15 ML UDC PO SCH (12:05)
--- NOTE | 2021-06-21 14:00 | NUR ---
PT CLEANED AND REPOSITIONED. TOLERATED WELL. WILL CONTINUE TO MONITOR.
--- NOTE | 2021-06-21 19:10 | NUR ---
ENDORSED BEDSIDE REPORT TO FEMI EARLY FOR CONTINUITY OF CARE.
--- NOTE | 2021-06-21 19:10 | NUR ---
RECEIVED REPORT FROM DAY SHIFT NURSE, ASSUMED CARE. PATIENT IN BED WITH EYES CLOSED AOXO, DOES NOT RESPOND TO NAME NOR OPENS EYES SPONTANEOUSLY. NO SIGNS OF ACUTE DISTRESS NOTED. BREATHING ON HI FLOW AT 40 L AND FIO2 70%, O2 SAT 97%. LEFT HAND 20 GAUGE AND PARADISE MIDLINE PRESENT, RUNNING D5 1/2 NS 2 ML/HR TKO. LEFT NG TUBE PRESENT RUNNING VITAL A.F AT 30 ML/HR. F/C IN PLACE WITH VISIBLE CLEAR YELLOW URINE. SKIN CONTINUES TO BE INTACT. ALL SAFETY MEASURES IN PLACE, WILL CONTINUE TO CLOSELY MONITOR AND FOLLOW POC.
[2021-06-21] MEDS ORDERED: FUROSEMIDE 20 MG/2 ML VIAL IVP ONE (19:51)
[2021-06-21] MEDS: FUROSEMIDE 20 MG/2 ML VIAL IVP SCH (20:30)
--- NOTE | 2021-06-21 20:30 | NUR ---
ADMINISTERED 2100 MEDICATIONS. PATIENT HAD BM, CLEANED AND REPOSITIONED HER. CHECKED RESIDUAL WITH 0 CC RESIDUAL NOTED, CONTINUED TUBE FEEDING AT 30 ML/HR. PATIENT IN NO ACUTE DISTRESS. ALL SAFETY MEASURES IN PLACE, WILL CONTINUE TO CLOSELY MONITOR.
[2021-06-22] VITALS (23 sets, daily range): BP systolic 79–151; BP diastolic 50–110
[2021-06-22] MEDS: METOCLOPRAMIDE 10 MG/2 ML INJ VIAL IVP SCH ×4 (00:28→18:53)
[2021-06-22] MEDS: SODIUM BICARBONATE 8.4% PFS 50 MEQ/50 ML SYR IVP SCH ×2 (00:28→05:30)
[2021-06-22] MEDS: METOPROLOL 5 MG/5 ML VIAL IV PRN (01:27)
--- NOTE | 2021-06-22 02:14 | NUR ---
PATIENT HAD ANOTHER BOWEL MOVEMENT, NOTED TO BE IMPACTED. CLEANED AND REPOSITIONED. NO SIGNS OF ACUTE DISTRESS NOTED. CONTINUES ON HI FLOW AT 40 L AND FIO2 70%. LOPRESSOR IV PRN ADMINISTERED 30 MINUTES AGO FOR HR ABOVE 130, PATIENT TOLERATED WELL, CURRENT HR 125, BP 133/88. WILL CONTINUE TO CLOSELY MONITOR AND FOLLOW POC.
--- NOTE | 2021-06-22 04:49 | NUR ---
OBSERVED PATIENT IN NO ACUTE DISTRESS. O2 SAT 99%, ON HI FLOW, FIO2 70%, AT 40 LITERS. WILL CONTINUE TO MONITOR AND FOLLOW POC.
[2021-06-22] MEDS: PIPERACILLIN/TAZOBACTAM 3.375 GM in DEXTROSE 5% 50 ML IV SCH ×3 (05:00→21:00)
--- NOTE | 2021-06-22 05:00 | NUR ---
INCREASED IV TUBE FEEDING TO GOAL OF 40 ML/HR. PATIENT IN NO APPARENT ACUTE DISTRESS, WILL CONTINUE TO MONITOR AND FOLLOW POC.
[2021-06-22 05:48] LABS: CHLORIDE 105 mmol/L (98-107); GLUCOSE 246 mg/dL (74-106); POTASSIUM 4.1 mmol/L (3.5-5.1); SODIUM SERUM 153 mmol/L (136-145); UREA NITROGEN, BLOOD 48 mg/dL (7-18)
[2021-06-22 06:00] LABS: ANION GAP 5.6 (8-16); CARBON DIOXIDE 46.5 mmol/L (21-32)
[2021-06-22 06:07] LABS: MAGNESIUM 2.3 mg/dL (1.8-2.4); PHOSPHORUS 2.4 mg/dL (2.5-4.9)
--- NOTE | 2021-06-22 06:30 | NUR ---
PATIENT HAD BM, CLEANED AND REPOSITIONED PATIENT. PATIENT IN NO ACUTE DISTRESS, O2 SAT 99%. ALL SAFETY MEASURES IN PLACE.
--- NOTE | 2021-06-22 08:22 | NUR ---
RECEIVED REPORT FROM DRUG ABUSE SOCIAL WORKER NURSE, ASSUMED CARE. PATIENT IN BED WITH EYES CLOSED AOXO, DOES NOT RESPOND TO NAME NOR OPENS EYES SPONTANEOUSLY. NO SIGNS OF ACUTE DISTRESS NOTED. BREATHING ON HI FLOW AT 40 L AND FIO2 70%, O2 SAT 100%. LEFT HAND 20 GAUGE AND PARADISE MIDLINE PRESENT, RUNNING D5 1/2 NS 2 ML/HR TKO. LEFT NG TUBE PRESENT RUNNING VITAL A.F AT 40 ML/HR. F/C IN PLACE WITH VISIBLE CLEAR YELLOW URINE. SKIN CONTINUES TO BE INTACT. ALL SAFETY MEASURES IN PLACE, WILL CONTINUE TO CLOSELY MONITOR AND FOLLOW POC.
[2021-06-22] MEDS: APIXABAN 2.5 MG TAB PO SCH ×2 (09:30→21:00)
[2021-06-22] MEDS ORDERED: CRUSHER, PILL MC ONE (09:36)
[2021-06-22] MEDS: FUROSEMIDE 20 MG/2 ML VIAL IVP SCH (09:51)
[2021-06-22] MEDS: DILTIAZEM 30 MG TAB NG SCH ×3 (09:52→17:29)
[2021-06-22] MEDS: METOPROLOL 25 MG TAB NG SCH ×2 (09:52→21:00)
[2021-06-22] MEDS ORDERED: DEXTROSE 50% 50 ML SYR IVP PRN (12:55)
[2021-06-22] MEDS: DEXTROSE 5% 1,000 ML IV SCH (12:57)
--- NOTE | 2021-06-22 15:00 | NUR ---
[id number] AT BEDSIDE
[2021-06-22 17:08] LABS: BASOPHILS % (AUTO) 0.2 % (0.0-2.0); HEMATOCRIT 39.2 % (36-48); HEMOGLOBIN 12.6 g/dL (12.0-16.0); LYMPHOCYTES # (AUTO) 0.5 K/uL (2.5-16.5); LYMPHOCYTES % (AUTO) 3.2 % (20.5-51.1); MEAN CORPUSCULAR HEMOGLOBIN 30 pg (27-31); MEAN CORPUSCULAR HGB CONC 32 g/dL (33-37); MONOCYTES # (AUTO) 1.7 K/uL (0.8-1.0); MONOCYTES % (AUTO) 10.7 % (1.7-9.3); NEUTROPHILS # (AUTO) 13.4 K/uL (1.8-7.7); NEUTROPHILS % (AUTO) 85.9 % (42.2-75.2); PLATELET COUNT (AUTO) 228 K/uL (140-450); RED BLOOD CELL COUNT(AUTO) 4.17 MIL/uL (4.20-5.40); WHITE BLOOD COUNT (AUTO) 15.6 K/uL (4.8-10.8)
--- NOTE | 2021-06-22 17:50 | NUR ---
PATIENT HAD 1 BM, CLEANED AND REPOSITIONED PATIENT. PATIENT IN NO ACUTE DISTRESS, O2 SAT 100%. ALL SAFETY MEASURES IN PLACE.
[2021-06-22] MEDS: BLOOD GLUCOSE MONITORING 1 DEV DEV FS SCH (18:52)
[2021-06-22] MEDS: INSULIN LISPRO SLIDING SCALE 100 UNITS/ML VIAL SUBQ PRN (18:57)
--- NOTE | 2021-06-22 22:22 | NUR ---
PATIENT NOT ALERT ON HIGH FLOW 55 % SAT 100% TEMP 97.8 ON MONITOR A-FIB HAS LEFT UPPER MIDLINE D5W 75 HOUR, D51/2NS 2CC HOUR. PATIENT RECEIVED ZOSYN 3.375 GM 2100. PATIENT HAS A LEFT UPPER MIDLINE.HAS A F/C DRINING REGAN URINE. NO DISTRESS NOTED.
[2021-06-23] VITALS (25 sets, daily range): BP systolic 76–146; BP diastolic 51–92
[2021-06-23] MEDS: INSULIN LISPRO SLIDING SCALE 100 UNITS/ML VIAL SUBQ PRN ×3 (00:30→12:51)
[2021-06-23] MEDS: DEXTROSE 5% 1,000 ML IV SCH (02:30)
[2021-06-23] MEDS: PIPERACILLIN/TAZOBACTAM 3.375 GM in DEXTROSE 5% 50 ML IV SCH ×3 (05:00→21:00)
[2021-06-23 05:25] LABS: BASOPHILS % (AUTO) 0.2 % (0.0-2.0); EOSINOPHILS # (AUTO) 0.1 K/uL (0-0.4); EOSINOPHILS % (AUTO) 0.5 % (0.0-4.0); HEMATOCRIT 38.5 % (36-48); HEMOGLOBIN 12.6 g/dL (12.0-16.0); LYMPHOCYTES # (AUTO) 0.4 K/uL (2.5-16.5); MEAN CORPUSCULAR HEMOGLOBIN 31 pg (27-31); MEAN CORPUSCULAR HGB CONC 33 g/dL (33-37); MEAN CORPUSCULAR VOLUME 93.5 fL (80-94); MONOCYTES # (AUTO) 1.6 K/uL (0.8-1.0); MONOCYTES % (AUTO) 11.1 % (1.7-9.3); NEUTROPHILS # (AUTO) 12.4 K/uL (1.8-7.7); PLATELET COUNT (AUTO) 209 K/uL (140-450); RED BLOOD CELL COUNT(AUTO) 4.12 MIL/uL (4.20-5.40); WHITE BLOOD COUNT (AUTO) 14.6 K/uL (4.8-10.8)
[2021-06-23 05:50] LABS: CHLORIDE 97 mmol/L (98-107); GLUCOSE 162 mg/dL (74-106); SODIUM SERUM 148 mmol/L (136-145); UREA NITROGEN, BLOOD 53 mg/dL (7-18)
[2021-06-23] MEDS: BLOOD GLUCOSE MONITORING 1 DEV DEV FS SCH ×4 (05:54→18:12)
[2021-06-23] MEDS: METOCLOPRAMIDE 10 MG/2 ML INJ VIAL IVP SCH ×4 (05:55→18:12)
[2021-06-23 06:03] LABS: ANION GAP 2.1 (8-16)
[2021-06-23 06:04] LABS: POTASSIUM 2.6 mmol/L (3.5-5.1)
[2021-06-23 06:05] LABS: CARBON DIOXIDE 51.5 mmol/L (21-32)
[2021-06-23 06:10] LABS: MAGNESIUM 1.8 mg/dL (1.8-2.4); PHOSPHORUS 2.9 mg/dL (2.5-4.9)
[2021-06-23] MEDS ORDERED: KCL 20 MEQ/WATER INJ PREMIX 200 ML IV SCH (06:35)
[2021-06-23 06:45] LABS: NEUTROPHILS % (AUTO) 85.2 % (42.2-75.2)
--- NOTE | 2021-06-23 06:48 | NUR ---
CALLED [address] Mireles 2.6, C02 51.5 GAVE ORDER TO GIVE K-RIDER 40 RAMSES X 2.
--- NOTE | 2021-06-23 07:30 | NUR ---
RECEIVED REPORT FROM DELINQUENT TAX COLLECTOR ASSISTANT NURSE. PATIENT IN BED WITH EYES CLOSED AOX1, AWAKE WITH EYES OPEN, TRACKS. RESPONDS TO TACTILE STIMULI. NO SIGNS OF ACUTE DISTRESS NOTED. ON HI FLOW AT 35 L AND FIO2 45%, O2 SAT 100%. PARADISE MIDLINE PRESENT, RUNNING D5 1/2 NS 2 ML/HR TKO. LEFT NG TUBE PRESENT RUNNING VITAL A.F AT 40 ML/HR. F/C IN PLACE WITH VISIBLE CLEAR YELLOW URINE. SKIN INTACT. ALL SAFETY MEASURES IN PLACE, WILL CONTINUE TO CLOSELY MONITOR AND FOLLOW POC.
--- NOTE | 2021-06-23 08:10 | NUR ---
WITH LOOSE BM X1, LILIANA CARE DONE, TURNED AND REPOSITIONED PT
[2021-06-23] MEDS: DILTIAZEM 30 MG TAB NG SCH ×3 (08:55→17:00)
[2021-06-23] MEDS: APIXABAN 2.5 MG TAB PO SCH ×2 (08:55→21:00)
[2021-06-23] MEDS: METOPROLOL 25 MG TAB NG SCH ×2 (08:55→21:00)
--- NOTE | 2021-06-23 09:30 | NUR ---
PT'S DAUGHTER AT BEDSIDE. PER DAUGHTER, PT RESPONDING TO HER WHEN SPOKEN TO. FAMILY REQUESTING TO TALK TO JBOSS DEVELOPER. WILL NOTIFY DR PRIEST
--- NOTE | 2021-06-23 10:25 | NUR ---
(06/23/21) RD FOLLOW UP COMPLETED PLEASE REFER TO NUTRITION PROGRESS NOTE UNDER CARE ACTIVITY FOR ESTIMATED NUTRITION NEEDS. RD RECOMMENDATIONS: 1. CONTINUE VITAL AF 1.2 WITH A GOAL RATE OF 40ML/HR TOLERATED -WATER FLUSH: 20 ML Q4H OR PER MD -PROVIDES 1152 KCALS AND 72 GMS PRO/DAY, MEETING 100% ESTIMATED ENERGY AND 106% ESTIMATED PRO NEEDS PER DAY 2. RD TO FOLLOW-UP 2-3 DAYS, HIGH RISK JENNIFER MARIE MS, RDN
--- NOTE | 2021-06-23 11:30 | NUR ---
FAMILY AT BEDSIDE, NO S/S OF PAIN, NO APPARENT DISTRESS
--- NOTE | 2021-06-23 14:08 | NUR ---
NO RESPIRATORY DISTRESS, FLACC 0. TURNED AND REPOSITIONED
[2021-06-23] MEDS ORDERED: KCL 20 MEQ/WATER INJ PREMIX 200 ML IV ONE (15:41)
--- NOTE | 2021-06-23 17:45 | NUR ---
WITH MODERATE LOOSE BM, LILIANA CARE DONE, TURNED AND REPOSITIONED
[2021-06-23] MEDS ORDERED: DIGOXIN 0.25 MG/ML AMP IV SCH (18:40)
--- NOTE | 2021-06-23 18:40 | NUR ---
SEEN AND EXAMINED BY BREE PELAEZ. SPOKE WITH FAMILY AT BEDSIDE. ORDERED DIGOXIN 0.5MG IV X 1
--- NOTE | 2021-06-23 18:59 | NUR ---
DIGOXIN 0.5MG IVP GIVEN ORDERED
--- NOTE | 2021-06-23 19:30 | NUR ---
RECEIVED PATIENT ON BED, LETHARGIC, AROUSABLE TO CALLS BY OPENING HER EYES. VENTILATING ON HIGH FLOW O2.CARDIACSCOPE SHOWS ON ATRIAL FIB WITH RVR.IV LINE ON RIGHT UPPER ARM MIDLINE; NORMAL SALINE IN PROGRESS KVO. ABDOMEN IS SOFT; ACTIVE BOWEL SOUNDS. ON CONTINOUS TUBE FEEDING 40 ML/HR, VIA NGT; TOLERATED WITH MINIMAL RESIDUAL. WITH MOORE CATH IN PLACE DRAINING TO CLEAR YELLOW URINE OUTPUT; PATENT AND INTACT.
--- NOTE | 2021-06-23 21:00 | NUR ---
HAD BM TO A LARGE AMOUNT OF WATERY YELLOW BROWN STOOL; KEPT CLEAN DRY AND COMFORTABLE; NOTED WITH REDNESS AND EXCORIATION ON PERINEAL AREA; Z GUARD APPLIED.
[2021-06-23] MEDS ORDERED: Z-GUARD PASTE TP ONE (22:49)
[2021-06-24] VITALS (24 sets, daily range): BP systolic 103–134; BP diastolic 57–97
[2021-06-24] MEDS: BLOOD GLUCOSE MONITORING 1 DEV DEV FS SCH ×5 (00:05→23:17)
--- NOTE | 2021-06-24 03:00 | NUR ---
HAD BM AGAIN TO MODERATE AMOUNT OF LOOSE TO WATERY STOOL; KEPT CLEAN DRY AND COMFORTABLE.
[2021-06-24 05:57] LABS: BASOPHILS % (AUTO) 0.1 % (0.0-2.0); EOSINOPHILS # (AUTO) 0.1 K/uL (0-0.4); EOSINOPHILS % (AUTO) 1.2 % (0.0-4.0); HEMATOCRIT 37.5 % (36-48); HEMOGLOBIN 12.2 g/dL (12.0-16.0); LYMPHOCYTES # (AUTO) 0.5 K/uL (2.5-16.5); MEAN CORPUSCULAR HEMOGLOBIN 31 pg (27-31); MEAN CORPUSCULAR HGB CONC 33 g/dL (33-37); MEAN CORPUSCULAR VOLUME 93.5 fL (80-94); MONOCYTES # (AUTO) 1.1 K/uL (0.8-1.0); PLATELET COUNT (AUTO) 211 K/uL (140-450); RED BLOOD CELL COUNT(AUTO) 4.01 MIL/uL (4.20-5.40); RED CELL DISTRIBUTION WIDTH 15.6 % (11.6-13.7); WHITE BLOOD COUNT (AUTO) 11.8 K/uL (4.8-10.8)
[2021-06-24] MEDS: METOCLOPRAMIDE 10 MG/2 ML INJ VIAL IVP SCH ×5 (06:00→23:18)
[2021-06-24 07:05] LABS: LYMPHOCYTES % (AUTO) 4.3 % (20.5-51.1); MONOCYTES % (AUTO) 9.5 % (1.7-9.3); NEUTROPHILS % (AUTO) 84.9 % (42.2-75.2)
[2021-06-24 07:09] LABS: CHLORIDE 96 mmol/L (98-107); CREATININE 0.9 mg/dL (0.6-1.3); GLUCOSE 113 mg/dL (74-106); POTASSIUM 3.6 mmol/L (3.5-5.1); SODIUM SERUM 142 mmol/L (136-145); UREA NITROGEN, BLOOD 46 mg/dL (7-18)
--- NOTE | 2021-06-24 07:15 | NUR ---
RECEIVED REPORT FROM LIZETT RN FOR CONTINUITY OF CARE. PATIENT IN BED WITH EYES CLOSED AAOX1. RESPONDS TO TACTILE STIMULI. NO SIGNS OF ACUTE DISTRESS NOTED. ON HI FLOW AT 35 L AND FIO2 40%, TOLERATING. PARADISE MIDLINE PRESENT, RUNNING NS 2 ML/HR TKO. NGT L NARE PRESENT RUNNING VITAL A.F AT 40 ML/HR FREE WATER FLUSH 300 ML Q4H . F/C IN PLACE DRAINING TO GRAVITY. SKIN INTACT. INITIAL ASSESSMENT COMPLETED. ALL SAFETY MEASURES IN PLACE, WILL CONTINUE TO CLOSELY MONITOR AND FOLLOW POC.
[2021-06-24 07:39] LABS: ANION GAP 12.4 (8-16); CARBON DIOXIDE 37.2 mmol/L (21-32)
--- NOTE | 2021-06-24 07:48 | NUR ---
RECEIVED ON A VAPOTHERM HIGH FLOW (#6946) NASAL CANNULA PLUGGED INTO RED OUTLET TOLERATING WELL WITHOUT ADVERSE REACTIONS NOTED RESTING COMFORTABLY GOOD CHEST RISE AIRWAY PATENT SATURATION 99% ON FIO2 OF 40% TITRATED FIO2 TO 35% KONSTANTIN/RN NOTIFIED
[2021-06-24 07:57] LABS: MAGNESIUM 1.9 mg/dL (1.8-2.4); PHOSPHORUS 3.1 mg/dL (2.5-4.9)
--- NOTE | 2021-06-24 09:15 | NUR ---
RECEIVED REPORT FROM LIZETT EARLY FOR CONTINUITY OF CARE. PATIENT IN BED WITH EYES CLOSED AAOX1. RESPONDS TO TACTILE STIMULI. NO SIGNS OF ACUTE DISTRESS NOTED. ON HI FLOW AT 35 L AND FIO2 40%, TOLERATING. PARADISE MIDLINE PRESENT, RUNNING NS 2 ML/HR TKO. NGT L NARE PRESENT RUNNING VITAL A.F AT 40 ML/HR FREE WATER FLUSH 300 ML Q4H . F/C IN PLACE DRAINING TO GRAVITY. SKIN INTACT. INITIAL ASSESSMENT COMPLETED. ALL SAFETY MEASURES IN PLACE, WILL CONTINUE TO CLOSELY MONITOR AND FOLLOW POC. Addendum: 06/24/21 at 1144 by Brenda Escamilla RN WRONG TIME DISREGARD.
[2021-06-24] MEDS: DILTIAZEM 30 MG TAB NG SCH ×3 (09:21→17:17)
[2021-06-24] MEDS: APIXABAN 2.5 MG TAB NG SCH ×2 (09:21→22:00)
[2021-06-24] MEDS: METOPROLOL 25 MG TAB NG SCH ×2 (09:21→22:00)
--- NOTE | 2021-06-24 09:50 | NUR ---
SCHEDULED MEDS ADMINISTERED NADR. NGT RESIDUAL 50CC. WILL CONTINUE TO MONITOR.
--- NOTE | 2021-06-24 10:15 | NUR ---
PT CLEANED AND REPOSITIONED. TOLERATED WELL. WILL CONTINUE TO MONITOR.
--- NOTE | 2021-06-24 12:23 | NUR ---
NO DISTRESS NOTED GOOD CHEST NEHA AIRWAY PATENT SATURATION 99% ON FIO2 OF 35% TITRATED FIO2 30% KONSTANTIN/RN NOTIFIED
[2021-06-24] MEDS: INSULIN LISPRO SLIDING SCALE 100 UNITS/ML VIAL SUBQ PRN ×2 (17:18)
--- NOTE | 2021-06-24 20:00 | NUR ---
CALLED REPORT TO PASCUAL MOY RN FOR CONTINUITY OF CARE VIA TELEPHONE.
--- NOTE | 2021-06-24 20:00 | NUR ---
REPORTED TO REQUEST FOR SERVICE BOTH RTS PRESENT TO TRANSFER PT TO MED SURG.
--- NOTE | 2021-06-24 20:07 | NUR ---
PT TRANSFERRED TO [facility] ROOM 118 WITH RT.
--- NOTE | 2021-06-24 20:14 | NUR ---
PT PRESENTS LAYING IN BED WITH NO SIGNS OF RESPIRATORY DISTRESS SATING 100% ON HFNC 25LPM 100% FIO2 35 DEGREES CELSIUS. WILL CONTINUE TO MONITOR.
--- NOTE | 2021-06-24 22:00 | NUR ---
RECEIVED PT TRANSFER FROM THE ICU TO RM 118. 86Y/O FEMALE W/ HX OF DEMENTIA. SPEAKS ITALIAN ONLY. PT IS COVID VACCINATED YET STILL IS COVID 19+. HAS SLIGHT NON PRODUCTIVE COUGH. PT LAYING IN BED WITH NO S/S OF RESPIRATORY DISTRESS. SATING 100% ON HFNC 25LPM 100% FIO2. WILL CONTINUE TO MONITOR. SOFT WRIST RESTRAINT ORDER GOOOD TIL 1500 06/25/21. WILL NEED TO BE REORDERED. NGT TO L NARES INFUSING VITAL AF 1.2 @ 40CC/HR WITH 300CC H2O FLUSH Q4 HRS. INC OF BOWEL AND BLADDER.X1 EACH STOOL DARK BROWN SOFT LIQUID. 2100 MEDS GIVEN.ALL SAFETY MEASURES IN PLACE. CONTINUE TO MONITOR.
[2021-06-25] VITALS: BP 119/61
--- NOTE | 2021-06-25 | NUR ---
RD=[id number] NO COVERAGE. FREQ. ROUNDS. PT IS STABLE.
[2021-06-25 01:00] VITALS: BP 117/78
--- NOTE | 2021-06-25 06:08 | NUR ---
PT TURNED AND REPOSITIONED. SOFT WRIST RESTRAINTS REMAIN IN PLACE. PT TRIES TO PULL AT ALL TUBES. INC OF SOFT LIQUID BROWN BM. AND URINE. BS= 124 NO COVERAGE NEEDED.
[2021-06-25] MEDS: BLOOD GLUCOSE MONITORING 1 DEV DEV FS SCH ×3 (06:21→17:12)
[2021-06-25] MEDS: METOCLOPRAMIDE 10 MG/2 ML INJ VIAL IVP SCH ×3 (06:22→17:03)
--- NOTE | 2021-06-25 07:30 | NUR ---
ENDORSED REPORT TO AM NURSE FOR CONTINUITY OF CARE.
--- NOTE | 2021-06-25 07:31 | NUR ---
RECEIVED PATIENT FROM ULTRASOUND TESTER NURSE FOR CONTINUITY OF CARE. PATIENT IS RESTING IN BED, AROUSABLE TO VOICE, UNABLE TO VERBALIZED NAME AND . RESPIRATORY EVEN AND UNLABORED, ON HIGH FLOW 25L NC, O2 SAT 100%. NO SIGN OF DISTRESS NOTED. SKIN WARM, DRY, NON DIAPHORETIC. SOFT RESTRAINT NOTED ON BILATERAL WRIST. MOORE IN PLACE, CLEAR YELLOW URINE. MIDLINE NOTED ON RIGHT UPPER ARM, INTACT AND PATENT, SALINE LOCK. NG TUBE LEFT NARES, IS RUNNING WITH VITAL AF @40CC/HR, WATER FLUSH 300Q4H. PATIENT TOLERATED WELL, RESIDUAL 30ML. PLAN OF CARE DISCUSSED, PATIENT UNABLE TO VERBALIZE NEED. PRECAUTION IN PLACE. CALL LIGHT WITHIN REACH. WILL CONTINUE TO MONITOR.
[2021-06-25 07:43] LABS: EOSINOPHILS # (AUTO) 0.1 K/uL (0-0.4); EOSINOPHILS % (AUTO) 0.8 % (0.0-4.0); HEMATOCRIT 36.5 % (36-48); HEMOGLOBIN 12.3 g/dL (12.0-16.0); LYMPHOCYTES # (AUTO) 0.4 K/uL (2.5-16.5); LYMPHOCYTES % (AUTO) 3.7 % (20.5-51.1); MEAN CORPUSCULAR HEMOGLOBIN 31 pg (27-31); MEAN CORPUSCULAR HGB CONC 34 g/dL (33-37); MEAN CORPUSCULAR VOLUME 91.4 fL (80-94); MONOCYTES % (AUTO) 9.9 % (1.7-9.3); NEUTROPHILS # (AUTO) 8.4 K/uL (1.8-7.7); NEUTROPHILS % (AUTO) 85.6 % (42.2-75.2); PLATELET COUNT (AUTO) 221 K/uL (140-450); RED BLOOD CELL COUNT(AUTO) 3.99 MIL/uL (4.20-5.40); RED CELL DISTRIBUTION WIDTH 15.5 % (11.6-13.7)
[2021-06-25 07:49] LABS: WHITE BLOOD COUNT (AUTO) 9.5 K/uL (4.8-10.8)
[2021-06-25 07:58] LABS: MAGNESIUM 1.6 mg/dL (1.8-2.4); PHOSPHORUS 3.8 mg/dL (2.5-4.9)
[2021-06-25 08:00] VITALS: BP 110/67
[2021-06-25 08:05] LABS: ANION GAP 9.4 (8-16); CARBON DIOXIDE 34.7 mmol/L (21-32); CHLORIDE 91 mmol/L (98-107); CREATININE 0.8 mg/dL (0.6-1.3); GLUCOSE 145 mg/dL (74-106); POTASSIUM 3.1 mmol/L (3.5-5.1); SODIUM SERUM 132 mmol/L (136-145); UREA NITROGEN, BLOOD 35 mg/dL (7-18)
[2021-06-25] MEDS: DILTIAZEM 30 MG TAB NG SCH ×3 (08:50→17:04)
[2021-06-25] MEDS: METOPROLOL 25 MG TAB NG SCH ×2 (08:50→21:09)
[2021-06-25] MEDS: APIXABAN 2.5 MG TAB NG SCH ×2 (08:50→21:10)
--- NOTE | 2021-06-25 08:50 | NUR ---
SCHEDULE MEDICATIONS GIVEN WITH EDUCATION. PATIENT TOLERATED WELL. NO SIGN OF DISTRESS NOTED. PRECAUTION IN PLACE. CALL LIGHT WITHIN REACH. WILL CONTINUE TO MONITOR.
--- NOTE | 2021-06-25 10:20 | NUR ---
PATIENT IS AWAKE, RESTING IN BED, O2 SAT 94%. PRECAUTION IN PLACE. CALL LIGHT WITHIN REACH. WILL CONTINUE TO MONITOR.
[2021-06-25 12:00] VITALS: BP 116/65
[2021-06-25] MEDS: INSULIN LISPRO SLIDING SCALE 100 UNITS/ML VIAL SUBQ PRN (12:50)
--- NOTE | 2021-06-25 12:52 | NUR ---
BS CHECK 151, 2 UNITS OF INSULIN GIVEN TO COVER, PATIENT TOLERATED WELL. NO SIGN OF DISTRESS NOTED. PRECAUTION IN PLACE. CALL LIGHT WITHIN REACH. SOFT RESTRAIN ON BILATERAL WRIST. WILL CONTINUE TO MONITOR.
[2021-06-25] MEDS ORDERED: POTASSIUM CHLORIDE 20% 40 MEQ/15 ML UDC GT SCH (13:00)
--- NOTE | 2021-06-25 14:21 | NUR ---
PATIENT IS RESTING IN BED, NO SIGN OF DISTRESS NOTED, O2 SAT 96%. PRECAUTION IN PLACE. CALL LIGHT WITHIN REACH. WILL CONTINUE TO MONITOR.
[2021-06-25 16:00] VITALS: BP 116/64
--- NOTE | 2021-06-25 17:12 | NUR ---
BS CHECK 126, NO INSULIN NEED TO COVER. SCHEDULE MEDICATIONS GIVEN THROUGH NG TUBE. PATIENT TOLERATED WELL. NO SIGN OF DISTRESS NOTED. PRECAUTION IN PLACE. CALL LIGHT WITHIN REACH. WILL CONTINUE TO MONITOR.
--- NOTE | 2021-06-25 17:30 | NUR ---
RECEIVED CALL FROM FAMILY MEMBER, CHRISTEN, TO UPDATE PATIENT'S CONDITION. ALL QUESTIONS WERE ANSWERED.
--- NOTE | 2021-06-25 19:12 | NUR ---
ENDORSED PATIENT TO MANAGER OF RECRUITING NURSE FOR CONTINUITY OF CARE. PATIENT IS STABLE.
--- NOTE | 2021-06-25 19:32 | NUR ---
PT PRESENTS LAYING IN BED WITH NO SIGNS OF RESPIRATORY DISTRESS SATING 100% ON HFNC 25LPM 100% FIO2 35 DEGREES CELSIUS. WILL CONTINUE TO MONITOR.
--- NOTE | 2021-06-25 19:35 | NUR ---
RECEIVED BEDSIDE REPORT FROM DAY SHIFT RN FOR CONTINUITY OF CARE. PT IS ON HIGH FLOW NC 25L. FC IN PLACE. PT IS SLEEPING IN BED. PT IS NOT IN ANY DISTRESS. BED AT THE LOWEST POSITION. HEAD OF BED RAISED. WILL CONTINUE TO MONITOR THE PT.
[2021-06-25 20:00] VITALS: BP 110/72
[2021-06-26] VITALS: BP 128/66
[2021-06-26] MEDS: BLOOD GLUCOSE MONITORING 1 DEV DEV FS SCH ×4 (00:18→17:22)
[2021-06-26] MEDS: INSULIN LISPRO SLIDING SCALE 100 UNITS/ML VIAL SUBQ PRN (00:19)
[2021-06-26] MEDS: METOCLOPRAMIDE 10 MG/2 ML INJ VIAL IVP SCH ×4 (00:20→17:00)
--- NOTE | 2021-06-26 02:50 | NUR ---
PT IS SLEEPING IN BED. PT IS NOT IN ANY DISTRESS. BREATHING RHYTHMIC AND SYMMETRICAL. FEEDING RUNNING MD ORDER. BED AT THE LOWEST POSITION. ALL SAFETY MEASURES TAKEN. WILL CONTINUE TO MONITOR THE PT.
[2021-06-26 04:00] VITALS: BP 130/58
--- NOTE | 2021-06-26 07:20 | NUR ---
ENDORSED PT TO DAY SHIFT RN FOR CONTINUITY OF CARE. PT IS STABLE.
--- NOTE | 2021-06-26 07:30 | NUR ---
PT ENDORSED BY ELECTRIC SWITCH TESTER NURSE FOR CONTINUITY OF CARE, POC DISCUSSED. PT IS IN BED WITH WRIST RESTRAINTS ON, NG TUBE IN LEFT NARE, MOORE CATH, RIGHT UPPER MIDLINE SALINE LOCK, AND ON HIGH FLOW 25L SATING AT 98%. PT ON TELE. ALL SAFETY MEASURES IN PLACE, CALL LIGHT WITHIN REACH. WILL CONTINUE TO MONITOR.
[2021-06-26 08:00] VITALS: BP 123/70
[2021-06-26] MEDS: METOPROLOL 25 MG TAB NG SCH ×2 (08:39→21:09)
[2021-06-26] MEDS: APIXABAN 2.5 MG TAB NG SCH ×2 (08:39→21:11)
[2021-06-26] MEDS: DILTIAZEM 30 MG TAB NG SCH ×3 (08:39→16:59)
[2021-06-26 12:00] VITALS: BP 125/69
--- NOTE | 2021-06-26 14:47 | NUR ---
06/26/21 RD FOLLOW UP COMPLETED PLEASE REFER TO NUTRITION ASSESSMENT UNDER CARE ACTIVITY FOR ESTIMATED NUTRITIONAL NEEDS. 1. CONTINUE VITAL AF 1.2 WITH A GOAL RATE OF 40ML/HR TOLERATED -WATER FLUSH: 300 ML Q4H OR PER MD -PROVIDES 1152 KCALS AND 72 GMS PRO/DAY, MEETING 100% ESTIMATED ENERGY AND 106% ESTIMATED PRO NEEDS PER DAY 2. RD TO FOLLOW-UP 3-5 DAYS, MODERATE RISK (DOWNGRADED D/T PT TOLERATING TF WITH NO GI SYMPTOMS) [address]
--- NOTE | 2021-06-26 15:10 | NUR ---
ALL 0900 MEDICATION ADMINISTERED PER MD ORDER, PT TOLERATED ADMINISTRATION, PT HAD 10 CC RESIDUAL, FLUSHED WITH 10CC PRIOR TO AND AFTER ADMINISTRATION. IV IS PATENT AND INTACT. RESTRAINTS RELEASED PER HOSPITAL POLICY AND NEURO CHECKS COMPLETED. PT STABLE AND NO INJURY NOTED. BLOOD GLUCOSE CHECKED AT 1200 AND NO INSULIN COVERAGE NEEDED. KYLE MEDICATION ADMINISTERED PER MD ORDER AT 1300. PT HAS BEEN CLEANED AND REPOSITIONED TWICE. AT ROUGHLY 1000 PT SON CALLED ASKING FOR UPDATES, ALL QUESTIONS ANSWERED. SON STATED HE WANTS TO SPEAK WITH DR ARANA, DR ARANA NOTIFIED AND PTS SONS PHONE NUMBER GIVEN. AT ROUGHLY 1300, PTS PCP CALLED AND ASKING FOR AN UPDATE, PER NOTES, UPDATE IS ALLOWED TO BE GIVEN TO , ALL QUESTIONS ANSWERED. ALL SAFETY MEASURES IN PLACE, CALL LIGHT WITHIN REACH. WILL CONTINUE TO MONITOR.
[2021-06-26 16:00] VITALS: BP 126/62
[2021-06-26 16:21] LABS: ANION GAP 8.7 (8-16); CARBON DIOXIDE 27.6 mmol/L (21-32); CHLORIDE 92 mmol/L (98-107); CREATININE 0.6 mg/dL (0.6-1.3); GLUCOSE 138 mg/dL (74-106); POTASSIUM 4.3 mmol/L (3.5-5.1); SODIUM SERUM 124 mmol/L (136-145); UREA NITROGEN, BLOOD 27 mg/dL (7-18)
--- NOTE | 2021-06-26 19:27 | NUR ---
PT ENDORSED TO OUTSIDE MACHINIST HELPER NURSE FOR CONTINUITY OF CARE, POC DISCUSSED.
--- NOTE | 2021-06-26 19:30 | NUR ---
RECEIVED PT FROM DAY SHIFT RN FOR CONTINUITY OF CARE. PT IS SLEEPING IN BED COMFORTABLY. PT HAS PARADISE MIDLINE SALINE LOCK. FEEDING RUNNING MD ORDER. HIGH FLOW 25L NC. PT IS NOT IN ANY DISTRESS. BED AT THE LOWEST POSITION. ALL SAFETY MEASURES TAKEN. WILL CONTINUE TO MONITOR THE PT.
[2021-06-26 20:00] VITALS: BP 113/71
--- NOTE | 2021-06-26 21:30 | NUR ---
ALL DUE MEDS GIVEN. NO ADVERSE REACTION NOTED. WILL CONTINUE TO MONITOR THE PT.
[2021-06-27] VITALS: BP 103/53
[2021-06-27] MEDS: BLOOD GLUCOSE MONITORING 1 DEV DEV FS SCH ×5 (00:09→23:55)
[2021-06-27] MEDS: METOCLOPRAMIDE 10 MG/2 ML INJ VIAL IVP SCH ×5 (00:11→23:40)
--- NOTE | 2021-06-27 00:30 | NUR ---
PLACED PT ON 4L N/C AROUND THIS TIME AND PT TOLERATING WELL. RESPIRATIONS EVEN AND UNLABORED. SPO2 RANGING FROM 94-97%. HIGH FLOW ON STAND BY.
--- NOTE | 2021-06-27 00:55 | NUR ---
PT IS SLEEPING IN BED. PT IS NOW ON NC 4L SATING 96%. PT IS NOT IN ANY DISTRESS. BREATHING RHYTHMIC AND UNLABORED. BED AT THE LOWEST POSITION. HEAD OF BED RAISED. ALL SAFETY MEASURES TAKEN. WILL CONTINUE TO MONITOR THE PT.
--- NOTE | 2021-06-27 03:42 | NUR ---
PT IS SLEEPING COMFORTABLY IN BED. PT IS NOT IN ANY DISTRESS. BREATHING RHYTHMIC AND SYMMETRICAL. BED AT THE LOWEST POSITION. HEAD OF BED RAISED. WILL CONTINUE TO MONITOR THE PT.
[2021-06-27 04:00] VITALS: BP 119/85
--- NOTE | 2021-06-27 05:24 | NUR ---
ALL DUE MEDS GIVEN. NO ADVERSE REACTION NOTED. WILL CONTINUE TO OBSERVE THE PT.
--- NOTE | 2021-06-27 07:30 | NUR ---
ENDORSED PT TO DAY SHIFT RN FOR CONTINUITY OF CARE. PT IS STABLE.
[2021-06-27 08:00] VITALS: BP 112/65
[2021-06-27] MEDS: METOPROLOL 25 MG TAB NG SCH ×2 (09:00→21:00)
[2021-06-27] MEDS ORDERED: FUROSEMIDE 20 MG TAB NG SCH (09:00)
[2021-06-27] MEDS ORDERED: FUROSEMIDE 20 MG/2 ML VIAL IVP ONE (09:25)
[2021-06-27] MEDS: DILTIAZEM 30 MG TAB NG SCH ×3 (10:10→17:00)
[2021-06-27] MEDS: APIXABAN 2.5 MG TAB NG SCH ×2 (10:11→21:00)
--- NOTE | 2021-06-27 10:30 | NUR ---
SCHEDULED MEDICATIONS DUE GIVEN. WILL CONTINUE TO MONITOR.
[2021-06-27 10:47] LABS: BASOPHILS % (AUTO) 0.2 % (0.0-2.0); EOSINOPHILS # (AUTO) 0.1 K/uL (0-0.4); EOSINOPHILS % (AUTO) 1.1 % (0.0-4.0); HEMATOCRIT 39.1 % (36-48); HEMOGLOBIN 12.9 g/dL (12.0-16.0); LYMPHOCYTES # (AUTO) 0.6 K/uL (2.5-16.5); LYMPHOCYTES % (AUTO) 5.8 % (20.5-51.1); MEAN CORPUSCULAR HEMOGLOBIN 31 pg (27-31); MEAN CORPUSCULAR HGB CONC 33 g/dL (33-37); MEAN CORPUSCULAR VOLUME 92.3 fL (80-94); MONOCYTES # (AUTO) 1.2 K/uL (0.8-1.0); MONOCYTES % (AUTO) 10.6 % (1.7-9.3); NEUTROPHILS # (AUTO) 9.2 K/uL (1.8-7.7); NEUTROPHILS % (AUTO) 82.3 % (42.2-75.2); PLATELET COUNT (AUTO) 228 K/uL (140-450); RED BLOOD CELL COUNT(AUTO) 4.24 MIL/uL (4.20-5.40); RED CELL DISTRIBUTION WIDTH 15.3 % (11.6-13.7); WHITE BLOOD COUNT (AUTO) 11.1 K/uL (4.8-10.8)
[2021-06-27 11:12] LABS: ANION GAP 8.1 (8-16); CARBON DIOXIDE 33.2 mmol/L (21-32); CHLORIDE 93 mmol/L (98-107); CREATININE 0.5 mg/dL (0.6-1.3); GLUCOSE 138 mg/dL (74-106); POTASSIUM 4.3 mmol/L (3.5-5.1); SODIUM SERUM 130 mmol/L (136-145); UREA NITROGEN, BLOOD 25 mg/dL (7-18)
[2021-06-27 12:00] VITALS: BP 116/65
--- NOTE | 2021-06-27 13:57 | NUR ---
SCHEDULED MEDICATIONS DUE GIVEN. WILL CONTINUE TO MONITOR.
[2021-06-27 16:00] VITALS: BP 118/62
--- NOTE | 2021-06-27 16:21 | NUR ---
POTENTIAL COVID RELATED SKIN FAILURE DUE TO TISSUE LESS TOLERATE TO PRESSURE, SHEARING AND POSSIBLE ASSOCIATED WITH MICROVASCULAR INJURY AND HYPOXIA CONTINUE TO FOLLOW SKIN CARE AND PRESSURE INJURY PREVENTION INTERVENTIONS. -TURN AND REPOSITION PATIENT Q 2H -ASSESS AND MONITOR SKIN CONDITION DURING POSITION CHANGE -OFFLOAD BILATERAL HEELS BY PLACING PILLOWS UNDER CALVES AT ALL TIMES, UNLESS OTHERWISE CONTRAINDICATED -PRESSURE REDISTRIBUTION SURFACE AND OFFLOADING SACRALCOCCYX -KEEP SKIN CLEAN AND DRY AT ALL TIMES.
--- NOTE | 2021-06-27 18:14 | NUR ---
SCHEDULED IV MEDICATIONS DUE GIVEN. CARDIZEM PO NOT GIVEN AT THIS TIME PATIENT PULLED OUT NGTUBE. WILL TRY TO INSERT NEW ONE. WILL CONTINUE TO MONITOR.
[2021-06-27 20:00] VITALS: BP 112/68
--- NOTE | 2021-06-27 20:22 | NUR ---
PT WAS SEEN AND ASSESSED. FOUND PT WAS ON 4L NC WITH SPO2 OF 99%. TITRATED O2 TO 3L NC WITH SPO2 OF 96%. PT IS IN NO RESPIRATORY DISTRESS AT THIS TIME. WILL CONTINUE TO MONITOR.
--- NOTE | 2021-06-27 22:30 | NUR ---
PATIENT IS AWAKE, NO S/S OF RESPIRATORY DISTRESS. WITH UNLABORED BREATHING. SAFETY MEASURES IN PLACE. CALL LIGHT WITHIN REACH. PATIENT PULLED OUT NGT, DR. ZEE IS AWARE. WILL CONTINUE TO MONITOR PT.
[2021-06-28] VITALS: BP 102/61
--- NOTE | 2021-06-28 03:15 | NUR ---
PATIENT IS SLEEPING. ON 3L NC TOLERATING WELL. NO SOB NOTED. CALL LIGHT WITHIN REACH.
[2021-06-28 04:00] VITALS: BP 121/80
[2021-06-28] MEDS: METOCLOPRAMIDE 10 MG/2 ML INJ VIAL IVP SCH ×3 (06:40→17:59)
[2021-06-28] MEDS: BLOOD GLUCOSE MONITORING 1 DEV DEV FS SCH ×3 (06:53→18:08)
--- NOTE | 2021-06-28 06:55 | NUR ---
BLOOD SUGAR WAS 89 NO INSULIN COVERAGE NEEDED.
[2021-06-28 07:02] LABS: BASOPHILS % (AUTO) 0.2 % (0.0-2.0); EOSINOPHILS % (AUTO) 0.5 % (0.0-4.0); HEMATOCRIT 38.4 % (36-48); HEMOGLOBIN 12.8 g/dL (12.0-16.0); LYMPHOCYTES # (AUTO) 0.4 K/uL (2.5-16.5); LYMPHOCYTES % (AUTO) 4.5 % (20.5-51.1); MEAN CORPUSCULAR HEMOGLOBIN 31 pg (27-31); MEAN CORPUSCULAR HGB CONC 33 g/dL (33-37); MEAN CORPUSCULAR VOLUME 92.2 fL (80-94); MONOCYTES # (AUTO) 0.8 K/uL (0.8-1.0); NEUTROPHILS # (AUTO) 7.7 K/uL (1.8-7.7); NEUTROPHILS % (AUTO) 85.8 % (42.2-75.2); PLATELET COUNT (AUTO) 284 K/uL (140-450); RED BLOOD CELL COUNT(AUTO) 4.17 MIL/uL (4.20-5.40); RED CELL DISTRIBUTION WIDTH 15.5 % (11.6-13.7)
[2021-06-28 07:14] LABS: ANION GAP 10.4 (8-16); CARBON DIOXIDE 33.9 mmol/L (21-32); CHLORIDE 94 mmol/L (98-107); CREATININE 0.7 mg/dL (0.6-1.3); GLUCOSE 99 mg/dL (74-106); POTASSIUM 3.3 mmol/L (3.5-5.1); SODIUM SERUM 135 mmol/L (136-145); UREA NITROGEN, BLOOD 26 mg/dL (7-18)
--- NOTE | 2021-06-28 07:32 | NUR ---
RECEIVED REPORT FROM MATRIX SUPERVISOR NURSE. PT STABLE. NO S/S OF DISTRESS. CALL LIGHT IN REACH. ALL SAFETY MEASURES IN PLACE
--- NOTE | 2021-06-28 07:45 | NUR ---
ENDORSED TO AM NURSE FOR CONTINUITY OF CARE.
[2021-06-28 08:00] VITALS: BP 144/96
[2021-06-28 08:52] LABS: URIC ACID 5.7 mg/dL (2.6-7.2)
[2021-06-28] MEDS: DILTIAZEM 30 MG TAB NG SCH ×4 (09:00→17:58)
[2021-06-28] MEDS: METOPROLOL 25 MG TAB NG SCH ×2 (09:00→21:00)
[2021-06-28 10:22] LABS: THYROID STIMULATING HORMONE 1.42 uIU/mL (0.34-3.74)
--- NOTE | 2021-06-28 10:41 | NUR ---
NG TUBE PLACED. STAT XRAY ORDERED TO VERIFY NG TUBE PLACEMENT
[2021-06-28] MEDS ORDERED: POTASSIUM CHLORIDE 20% 40 MEQ/15 ML UDC NG SCH (10:45)
[2021-06-28 12:00] VITALS: BP 138/99
--- NOTE | 2021-06-28 12:45 | NUR ---
CLEARED TO USE NG TUBE BY MD. PT MEDICATIONS TO BE GIVEN. HELD MORNING CARDIZEM, TO CLOSE TO 1300 ADMINISTRATION
[2021-06-28] MEDS: APIXABAN 2.5 MG TAB NG SCH ×2 (12:59→21:38)
--- NOTE | 2021-06-28 14:28 | NUR ---
PT RESTING IN PLACE. NG TUBE STILL IN PLACE. PT STABLE. NO S/S OF DISTRESS. CALL LIGHT IN REACH. ALL SAFETY MEASURES IN PLACE
[2021-06-28 16:00] VITALS: BP 113/78
--- NOTE | 2021-06-28 19:17 | NUR ---
ENDORSED PT TO SUPERVISOR VACUUM METALIZING NURSE. PT FAMILY AT BEDSIDE Addendum: 06/28/21 at 1919 by Tristen Love RN RN PT FAMILY NOT AT BEDSIDE. SPOKE TO PT MD FOR PROCEDURE VIA PHONE
--- NOTE | 2021-06-28 19:19 | NUR ---
SPOKE TO DR. COLIN AT [phone] PER DR. ARANA, DR. COLIN TO PERFORM PEG PLACEMENT FOR PT 06/29/21. FAMILY AND MD TO COME IN AM TO SIGN CONSENT. CONSENT PRINTED AND PLACED IN CHART. GEOTECHNICAL LABORATORY TECHNICIAN NURSE INFORMED
[2021-06-28 20:00] VITALS: BP 144/73
--- NOTE | 2021-06-28 20:39 | NUR ---
PT WAS SEEN AND ASSESSED. FOUND PT WAS ON ROOM AIR WITH SPO2 OF 94%. PT IS IN NO RESPIRATORY DISTRESS AT THIS TIME. WILL CONTINUE TO MONITOR.
--- NOTE | 2021-06-28 21:30 | NUR ---
PATIENT PULLED OUT NGT. NO SOB NOTED. ALL SAFETY MEASURES IN PLACE. CALL LIGHT WITHIN REACH. REPOSITIONED AND COVERED PT WITH BLANKET. KEPT WARM AND COMFORTABLE.
--- NOTE | 2021-06-28 22:25 | NUR ---
INSERTED NGT. CHEST X-RAY ORDERED FOR TUBE PLACEMENT.
[2021-06-29] VITALS: BP 129/74
[2021-06-29] MEDS: METOCLOPRAMIDE 10 MG/2 ML INJ VIAL IVP SCH ×4 (00:24→17:28)
[2021-06-29] MEDS: BLOOD GLUCOSE MONITORING 1 DEV DEV FS SCH ×4 (00:48→17:28)
[2021-06-29 04:00] VITALS: BP 132/70
--- NOTE | 2021-06-29 06:16 | NUR ---
BLOOD SUGAR WAS 96 NO INSULIN COVERAGE NEEDED.
--- NOTE | 2021-06-29 07:30 | NUR ---
RECEIVED REPORT FROM DIRECTOR PHARMACY SERVICES NURSE
--- NOTE | 2021-06-29 07:39 | NUR ---
ENDORSED TO AM RN FOR CONTINUITY OF CARE.
[2021-06-29] MEDS ORDERED: fentaNYL citrate 0.05 MG/ML VIAL ONE (07:55)
[2021-06-29] MEDS ORDERED: MIDAZOLAM 5 MG/5 ML VIAL ONE ×2 (07:55→07:57)
[2021-06-29 08:00] VITALS: BP 105/53
--- NOTE | 2021-06-29 08:00 | NUR ---
OBTAINED TELEPHONE CONSENT FROM PT'S SON, ABRAHAN, FOR EGD PEG
[2021-06-29] MEDS: cefTRIAXone 1,000 MG VIAL ONE ×2 (08:25→09:01)
--- NOTE | 2021-06-29 08:30 | NUR ---
DR COLIN AT BEDSIDE TO DO EGD PEG
--- NOTE | 2021-06-29 08:50 | NUR ---
PER DR COLIN, EGD OK TO USE FOR FEEDING AND MEDS AFTER 1 HOUR
[2021-06-29] MEDS ORDERED: MIDAZOLAM 2 MG/2 ML VIAL IVP ONE (09:10)
[2021-06-29] MEDS: APIXABAN 2.5 MG TAB NG SCH ×2 (09:53→22:33)
[2021-06-29] MEDS: DILTIAZEM 30 MG TAB NG SCH ×3 (09:53→17:28)
[2021-06-29] MEDS: METOPROLOL 25 MG TAB NG SCH ×2 (09:54→22:34)
--- NOTE | 2021-06-29 10:00 | NUR ---
DUE MEDS GIVEN VIA GT, TOLERATED WELL
--- NOTE | 2021-06-29 11:20 | NUR ---
LILIANA CARE DONE, TURNED AND REPOSITIONED
[2021-06-29] MEDS ORDERED: POTASSIUM CHLORIDE 20% 40 MEQ/15 ML UDC GT PRN (11:55)
[2021-06-29 12:00] VITALS: BP 119/91
[2021-06-29 12:27] LABS: BASOPHILS % (AUTO) 0.2 % (0.0-2.0); EOSINOPHILS % (AUTO) 0.4 % (0.0-4.0); HEMATOCRIT 35.8 % (36-48); HEMOGLOBIN 11.9 g/dL (12.0-16.0); LYMPHOCYTES # (AUTO) 0.4 K/uL (2.5-16.5); LYMPHOCYTES % (AUTO) 4.5 % (20.5-51.1); MEAN CORPUSCULAR HEMOGLOBIN 31 pg (27-31); MEAN CORPUSCULAR HGB CONC 33 g/dL (33-37); MEAN CORPUSCULAR VOLUME 92.7 fL (80-94); MONOCYTES # (AUTO) 0.9 K/uL (0.8-1.0); MONOCYTES % (AUTO) 10.8 % (1.7-9.3); NEUTROPHILS # (AUTO) 6.9 K/uL (1.8-7.7); NEUTROPHILS % (AUTO) 84.1 % (42.2-75.2); PLATELET COUNT (AUTO) 300 K/uL (140-450); RED BLOOD CELL COUNT(AUTO) 3.87 MIL/uL (4.20-5.40); RED CELL DISTRIBUTION WIDTH 15.4 % (11.6-13.7); WHITE BLOOD COUNT (AUTO) 8.2 K/uL (4.8-10.8)
[2021-06-29 12:50] LABS: ANION GAP 13.1 (8-16); CARBON DIOXIDE 31.3 mmol/L (21-32); CHLORIDE 99 mmol/L (98-107); CREATININE 0.6 mg/dL (0.6-1.3); GLUCOSE 95 mg/dL (74-106); POTASSIUM 4.4 mmol/L (3.5-5.1); SODIUM SERUM 139 mmol/L (136-145); UREA NITROGEN, BLOOD 35 mg/dL (7-18)
--- NOTE | 2021-06-29 13:00 | NUR ---
O2SAT 92-94% ON ROOM AIR
--- NOTE | 2021-06-29 13:30 | NUR ---
SEEN AND EXAMINED BY DR ARANA
[2021-06-29 16:00] VITALS: BP 152/92
--- NOTE | 2021-06-29 18:48 | NUR ---
NO RESPIRATORY DISTRESS ON ROOM AIR, NO S/S OF PAIN. WILL ENDORSE TO NEXT SHIFT
[2021-06-29 20:00] VITALS: BP 137/89
--- NOTE | 2021-06-29 22:35 | NUR ---
LOPRESSOR ADMINISTERED SCHEDULED PER MD ORDERED. BP- 137/89 P-78.
[2021-06-30] VITALS: BP 128/81
[2021-06-30] MEDS: METOCLOPRAMIDE 10 MG/2 ML INJ VIAL IVP SCH ×5 (00:01→23:25)
[2021-06-30] MEDS: INSULIN LISPRO SLIDING SCALE 100 UNITS/ML VIAL SUBQ PRN ×3 (00:52→23:25)
[2021-06-30] MEDS: BLOOD GLUCOSE MONITORING 1 DEV DEV FS SCH ×5 (00:53→23:24)
[2021-06-30 04:00] VITALS: BP 134/79
--- NOTE | 2021-06-30 06:00 | NUR ---
BLOOD SUGAR 193, 2 UNITS OF INSULIN GIVEN
[2021-06-30 07:23] LABS: ALBUMIN 2.5 g/dL (3.4-5.0); ANION GAP 10.9 (8-16); ASPARTATE AMINOTRANSFERASE 32 U/L (15-37); CARBON DIOXIDE 30.3 mmol/L (21-32); CHLORIDE 99 mmol/L (98-107); CREATININE 0.7 mg/dL (0.6-1.3); GLUCOSE 180 mg/dL (74-106); POTASSIUM 4.2 mmol/L (3.5-5.1); SODIUM SERUM 136 mmol/L (136-145); TOTAL BILIRUBIN 1.4 mg/dL (0.0-1.0); UREA NITROGEN, BLOOD 41 mg/dL (7-18)
--- NOTE | 2021-06-30 07:26 | NUR ---
ENDORSED TO AM NURSE FOR CONTINUITY OF CARE.
--- NOTE | 2021-06-30 07:26 | NUR ---
RECEIVED PATIENT FROM FISH AND GAME WARDEN NURSE FOR CONTINUITY OF CARE. PATIENT IS AWAKE, RESTING IN BED, UNABLE TO VERBALIZE NAME, , OR PLACE. RESPIRATORY EVEN AND UNLABORED, ON ROOM AIR. NO SIGN OF DISTRESS NOTED. SKIN WARM, DRY, NON DIAPHORETIC. MIDLINE DOUBLE LUMENS NOTED ON RIGHT UPPER ARM, INTACT AND PATENT, SALINE LOCK. MOORE IN PLACE WITH CLEAR YELLOW URINE. G-TUBE IN PLACE, IS RUNNING WITH VITAL AF 1@40ML/HR, WATER FLUSH 50ML Q6H. SOFT WRIST RESTRAIN NOTED ON BILATERAL WRISTS. PLAN OF CARE DISCUSSED. PRECAUTION IN PLACE. CALL LIGHT WITHIN REACH. WILL CONTINUE TO MONITOR.
[2021-06-30 08:00] VITALS: BP 132/82
[2021-06-30] MEDS: METOPROLOL 25 MG TAB NG SCH ×2 (09:20→20:32)
[2021-06-30] MEDS: DILTIAZEM 30 MG TAB NG SCH ×3 (09:21→17:17)
[2021-06-30] MEDS: APIXABAN 2.5 MG TAB NG SCH ×2 (09:23→20:31)
--- NOTE | 2021-06-30 09:23 | NUR ---
SCHEDULE MEDICATIONS GIVEN WITH EDUCATION, PATIENT TOLERATED WELL. NO SIGN OF DISTRESS NOTED. PRECAUTION IN PLACE. CALL LIGHT WITHIN REACH. WILL CONTINUE TO MONITOR.
[2021-06-30 12:00] VITALS: BP 127/90
--- NOTE | 2021-06-30 12:13 | NUR ---
BLOOD SUGAR CHECK 194, 2 UNITS OF INSULIN GIVEN TO COVER. SCHEDULE MEDICATIONS GIVEN. PATIENT TOLERATED WELL. NO SIGN OF DISTRESS NOTED. PRECAUTION IN PLACE. CALL LIGHT WITHIN REACH. WILL CONTINUE TO MONITOR.
--- NOTE | 2021-06-30 14:20 | NUR ---
PT ATTEMPTED TO REMOVE NC, SOFT WRIST RESTRAINT APPLY. PATIENT IS AWAKE. PRECAUTION IN PLACE. CALL LIGHT WITHIN REACH. WILL CONTINUE TO MONITOR.
[2021-06-30 16:00] VITALS: BP 123/69
[2021-06-30 16:42] LABS: BASOPHILS % (AUTO) 0.3 % (0.0-2.0); EOSINOPHILS % (AUTO) 0.1 % (0.0-4.0); HEMOGLOBIN 11.8 g/dL (12.0-16.0); LYMPHOCYTES # (AUTO) 0.3 K/uL (2.5-16.5); LYMPHOCYTES % (AUTO) 2.9 % (20.5-51.1); MEAN CORPUSCULAR HEMOGLOBIN 31 pg (27-31); MEAN CORPUSCULAR HGB CONC 33 g/dL (33-37); MEAN CORPUSCULAR VOLUME 93.1 fL (80-94); MONOCYTES # (AUTO) 1.1 K/uL (0.8-1.0); MONOCYTES % (AUTO) 9.4 % (1.7-9.3); NEUTROPHILS # (AUTO) 10.3 K/uL (1.8-7.7); NEUTROPHILS % (AUTO) 87.3 % (42.2-75.2); PLATELET COUNT (AUTO) 335 K/uL (140-450); RED BLOOD CELL COUNT(AUTO) 3.87 MIL/uL (4.20-5.40); RED CELL DISTRIBUTION WIDTH 15.3 % (11.6-13.7); WHITE BLOOD COUNT (AUTO) 11.9 K/uL (4.8-10.8)
[2021-06-30 17:13] LABS: ANION GAP 12.5 (8-16); CARBON DIOXIDE 29.8 mmol/L (21-32); CHLORIDE 99 mmol/L (98-107); CREATININE 0.7 mg/dL (0.6-1.3); GLUCOSE 151 mg/dL (74-106); POTASSIUM 4.3 mmol/L (3.5-5.1); SODIUM SERUM 137 mmol/L (136-145); UREA NITROGEN, BLOOD 41 mg/dL (7-18)
--- NOTE | 2021-06-30 17:34 | NUR ---
BLOOD SUGAR 138, NO INSULIN NEED TO COVER. SCHEDULE MEDICATIONS GIVEN WITH EDUCATION. PATIENT TOLERATED WELL. NO SIGN OF DISTRESS NOTED. PRECAUTION IN PLACE. CALL LIGHT WITHIN REACH. WILL CONTINUE TO MONITOR.
--- NOTE | 2021-06-30 18:25 | NUR ---
FAXED FEEDING ORDER AND OXYGEN ORDER TO [facility].
--- NOTE | 2021-06-30 19:36 | NUR ---
ENDORSED PATIENT TO BRAIN PICKER NURSE FOR CONTINUITY OF CARE. PATIENT IS STABLE.
[2021-06-30 20:00] VITALS: BP 132/93
--- NOTE | 2021-06-30 20:31 | NUR ---
ADMINISTERED MEDICATIONS SCHEDULED DUE.
--- NOTE | 2021-06-30 22:16 | NUR ---
PATIENT AWAKE, CONFUSED O2 AT 2L NC SATING AT 98%. NO SOB NOTED. SKIN WARM AND DRY TO THE TOUCH. ALL SAFETY MEASURES ARE IN PLACE. WILL CONTINUE TO MONITOR PT.
[2021-07-01] VITALS: BP 130/80
[2021-07-01 04:00] VITALS: BP 128/79
[2021-07-01] MEDS: METOCLOPRAMIDE 10 MG/2 ML INJ VIAL IVP SCH ×4 (05:24→23:30)
[2021-07-01] MEDS: BLOOD GLUCOSE MONITORING 1 DEV DEV FS SCH ×4 (05:40→23:38)
[2021-07-01] MEDS: INSULIN LISPRO SLIDING SCALE 100 UNITS/ML VIAL SUBQ PRN ×3 (05:40→23:38)
--- NOTE | 2021-07-01 05:43 | NUR ---
BLOOD SUGAR WAS 198 INSULIN HUMALOG 2 UNITS GIVEN ORDERED PER SLIDING SCALE.
--- NOTE | 2021-07-01 07:34 | NUR ---
ENDORSED PATIENT TO AM NURSE FOR CONTINUITY OF CARE.
[2021-07-01 07:51] LABS: BASOPHILS % (AUTO) 0.3 % (0.0-2.0); EOSINOPHILS % (AUTO) 0.1 % (0.0-4.0); HEMATOCRIT 34.7 % (36-48); HEMOGLOBIN 11.6 g/dL (12.0-16.0); LYMPHOCYTES # (AUTO) 0.5 K/uL (2.5-16.5); LYMPHOCYTES % (AUTO) 4.1 % (20.5-51.1); MEAN CORPUSCULAR HEMOGLOBIN 31 pg (27-31); MEAN CORPUSCULAR HGB CONC 33 g/dL (33-37); MEAN CORPUSCULAR VOLUME 92.1 fL (80-94); MONOCYTES # (AUTO) 0.8 K/uL (0.8-1.0); MONOCYTES % (AUTO) 7.1 % (1.7-9.3); NEUTROPHILS # (AUTO) 10.3 K/uL (1.8-7.7); NEUTROPHILS % (AUTO) 88.4 % (42.2-75.2); PLATELET COUNT (AUTO) 326 K/uL (140-450); RED BLOOD CELL COUNT(AUTO) 3.77 MIL/uL (4.20-5.40); RED CELL DISTRIBUTION WIDTH 15.8 % (11.6-13.7); WHITE BLOOD COUNT (AUTO) 11.6 K/uL (4.8-10.8)
--- NOTE | 2021-07-01 07:55 | NUR ---
RECEIVED BEDSIDE REPORT FROM CABLE MAINTAINER NURSE FOR CONTINUITY OF CARE. PT IS AWAKE WITH EYES OPEN. A&OX1. ON 2L O2 NC WITH BREATHING UNLABORED. G TUBE IN PLACE INFUSING FEEDING ORDERED. MOORE CATH IN PLACE DRAINING URINE. SKIN IS WARM, DRY, AND INTACT. MIDLINE IN THE UPPER ARM RIGHT SIDE SALINE LOCKED. PT IS STABLE. FLACC 0. PLAN OF CARE DISCUSSED.
[2021-07-01 07:57] LABS: ALBUMIN 2.3 g/dL (3.4-5.0); ANION GAP 10.7 (8-16); ASPARTATE AMINOTRANSFERASE 42 U/L (15-37); CARBON DIOXIDE 30.5 mmol/L (21-32); CHLORIDE 101 mmol/L (98-107); CREATININE 0.7 mg/dL (0.6-1.3); GLUCOSE 166 mg/dL (74-106); POTASSIUM 4.2 mmol/L (3.5-5.1); SODIUM SERUM 138 mmol/L (136-145); TOTAL BILIRUBIN 1.6 mg/dL (0.0-1.0); UREA NITROGEN, BLOOD 45 mg/dL (7-18)
[2021-07-01 08:00] VITALS: BP 150/87
[2021-07-01] MEDS: APIXABAN 2.5 MG TAB NG SCH (08:59)
[2021-07-01] MEDS: DILTIAZEM 30 MG TAB NG SCH ×3 (08:59→20:24)
[2021-07-01] MEDS: METOPROLOL 25 MG TAB NG SCH ×2 (08:59→20:24)
[2021-07-01] MEDS ORDERED: CRUSHER, PILL MC ONE (09:07)
[2021-07-01] MEDS ORDERED: METO25TA NG (10:36)
[2021-07-01] MEDS ORDERED: DILT-15 NG (10:36)
[2021-07-01] MEDS ORDERED: ONDA4TAB PO (10:36)
[2021-07-01] MEDS ORDERED: APIX2.5 NG (10:36)
[2021-07-01 12:00] VITALS: BP 117/73
--- NOTE | 2021-07-01 13:00 | NUR ---
PT IS LAYING IN SEMI FOWLERS POSITION. PT IS AWAKE BUT DOES NOT ANSWER QUESTIONS. MUMBLING NOTED. ON 2L O2 NC WITH BREATHING UNLABORED. O2 SAT IS 95%. G TUBE IS IN PLACE INFUSING FEEDING ORDERED. RESIDUAL IN G TUBE WAS LESS THAN 5 ML. NO SIGNS OF DIARRHEA/ NAUSEA/ OR VOMITING. FLACC 0. PT IS ON RESTRAINTS. WILL CONTINUE TO MONITOR.
--- NOTE | 2021-07-01 14:09 | NUR ---
07/01/21 RD FOLLOW UP COMPLETED PLEASE REFER TO NUTRITION PROGRESS NOTE UNDER CARE ACTIVITY FOR ESTIMATED NUTRITION NEEDS. RD RECOMMENDATIONS: 1. CONTINUE VITAL AF 1.2 WITH A GOAL RATE OF 40ML/HR TOLERATED -PROVIDES 1152 KCALS AND 72 GMS PRO/DAY, MEETING 100% ESTIMATED ENERGY AND 106% ESTIMATED PRO NEEDS PER DAY 2. CONSIDER INCREASING WATER FLUSH TO 150 ML Q6H OR PER MD 3. RD TO FOLLOW-UP 3-5 DAYS, MODERATE RISK (DOWNGRADED D/T PT TOLERATING TF WITH NO GI SYMPTOMS LYUDMILA KEBEDE, RD
[2021-07-01 16:00] VITALS: BP 125/78
--- NOTE | 2021-07-01 16:09 | NUR ---
RECEIVED ORDER FOR RENEWAL OF RESTRAINTS THE PT IS PULLING AT HER MOORE CATHETER AND G TUBE. ABDOMINAL BINDER WAS PLACED AND REORIENTATION WAS PROVIDED. PT STILL PULLED AT LINES. SOFT WRIST RESTRAINTS IN PLACE. WILL CONTINUE TO MONITOR PT.
--- NOTE | 2021-07-01 19:00 | NUR ---
PT WAS STABLE THROUGHOUT THIS SHIFT. BREATHING UNLABORED ON 2L O2 NC. G TUBE IN PLACE WITH ABDOMINAL BINDER IN PLACE INFUSING FEEDING. SKIN IS WARM, DRY, AND INTACT. FLACC 0. MOORE CATH IN PLACE. PT PULLS AT LINES THEREFORE IS ON RESTRAINTS. WILL CONTINUE TO MONITOR.
--- NOTE | 2021-07-01 19:27 | NUR ---
PT IS STABLE. WILL ENDORSE TO CASH MANAGEMENT CLERK NURSE FOR CONTINUITY OF CARE AND DISCUSS PLAN OF CARE.
--- NOTE | 2021-07-01 19:50 | NUR ---
RECEIVED PT ON BED, AAOX1, AWAKE AND RESTLESS, MUMBLING, UNABLE TO FOLLOW COMMANDS, AMANDA SOFT WRIST RESTRAINTS IN PLACE DUE TO PULLING OUT OF MEDICAL LINES/TUBES AND NASAL CANNULA, SAT-86% ON 2L NC, INCREASED O2 TO 4L, SAT WENT UP TO 90%, WITH RT UA MIDLINE IN PLACE, DRESSING DRY AND INTACT, G-TUBE FEEDING INFUSING WELL, ABDOMINAL BINDER IN PLACE, MOORE CATHETER TO GRAVITY WITH STRAW COLORED URINE, MAINTAINED ON DROPLET ISOLATION FOR COVID POSITIVE, SAFETY MEASURES IN PLACE, FREQUENT ROUNDS WILL BE MADE.
[2021-07-01 20:00] VITALS: BP 130/63
--- NOTE | 2021-07-01 21:40 | NUR ---
PT'S SON CHRISTEN CALLED AND UPDATED ON PT'S CONDITION AND PLAN OF CARE.
--- NOTE | 2021-07-01 23:15 | NUR ---
ROUNDS MADE, SEEN PT ABLE TO TAKE OFF NASAL CANNULA, SAT-82%, PUT BACK O2, SAT WENT UP TO 91%, REPOSITIONED AND OFFLOAD PRESSURE AREAS, MONITORED CLOSELY.
[2021-07-02] VITALS: BP 134/53
[2021-07-02 04:00] VITALS: BP 143/93
--- NOTE | 2021-07-02 04:46 | NUR ---
SEEN WITH SAT-83%, PT ABLE TO REMOVED NASAL CANNULA, UNABLE TO FOLLOW COMMANDS, PUT BACK ON O2, SAT WENT UP TO 91% ON 4LPM O2, MONITORED CLOSELY.
[2021-07-02] MEDS: DILTIAZEM 30 MG TAB NG SCH ×3 (05:15→21:16)
[2021-07-02] MEDS: METOCLOPRAMIDE 10 MG/2 ML INJ VIAL IVP SCH ×4 (05:18→23:59)
--- NOTE | 2021-07-02 05:20 | NUR ---
PT STILL RESTLESS, WITH ATTEMPTS TO PULL ANY TUBES/LINES WITHIN REACH, 5ML GT RESIDUAL NOTED, ADMINISTERED DUE CARDIZEM VIA G-TUBE, BLOOD SUGAR CHECKED WITH 105 RESULT, SAT-93% ON 4L/NC, DECREASE O2 TO 3L NC, SAT-91%, CONTINUE TO MONITOR CLOSELY.
[2021-07-02] MEDS: BLOOD GLUCOSE MONITORING 1 DEV DEV FS SCH ×3 (05:28→17:37)
[2021-07-02 07:00] LABS: BASOPHILS % (AUTO) 0.2 % (0.0-2.0); EOSINOPHILS % (AUTO) 0.2 % (0.0-4.0); HEMATOCRIT 31.4 % (36-48); HEMOGLOBIN 10.5 g/dL (12.0-16.0); LYMPHOCYTES # (AUTO) 0.6 K/uL (2.5-16.5); LYMPHOCYTES % (AUTO) 4.8 % (20.5-51.1); MEAN CORPUSCULAR HEMOGLOBIN 30 pg (27-31); MEAN CORPUSCULAR HGB CONC 33 g/dL (33-37); MEAN CORPUSCULAR VOLUME 91.3 fL (80-94); MONOCYTES % (AUTO) 8.6 % (1.7-9.3); NEUTROPHILS # (AUTO) 10.5 K/uL (1.8-7.7); NEUTROPHILS % (AUTO) 86.2 % (42.2-75.2); PLATELET COUNT (AUTO) 355 K/uL (140-450); RED BLOOD CELL COUNT(AUTO) 3.44 MIL/uL (4.20-5.40); RED CELL DISTRIBUTION WIDTH 15.4 % (11.6-13.7); WHITE BLOOD COUNT (AUTO) 12.2 K/uL (4.8-10.8)
[2021-07-02 07:11] LABS: ALBUMIN 2.1 g/dL (3.4-5.0); ANION GAP 14.1 (8-16); ASPARTATE AMINOTRANSFERASE 29 U/L (15-37); CARBON DIOXIDE 28.4 mmol/L (21-32); CHLORIDE 101 mmol/L (98-107); CREATININE 0.6 mg/dL (0.6-1.3); GLUCOSE 115 mg/dL (74-106); POTASSIUM 3.5 mmol/L (3.5-5.1); SODIUM SERUM 140 mmol/L (136-145); TOTAL BILIRUBIN 1.4 mg/dL (0.0-1.0); UREA NITROGEN, BLOOD 49 mg/dL (7-18)
[2021-07-02 08:00] VITALS: BP 128/77
--- NOTE | 2021-07-02 08:05 | NUR ---
RECEIVED BEDSIDE REPORT FROM MARKETING PROJECT COORDINATOR NURSE FOR CONTINUITY OF CARE. PT IS AWAKE WITH EYES OPEN. A&OX0. ON 3L O2 NC WITH BREATHING UNLABORED. G TUBE IN PLACE INFUSING FEEDING ORDERED. MOORE CATH IN PLACE DRAINING URINE. SKIN IS WARM, DRY, AND INTACT. MIDLINE IN THE UPPER ARM RIGHT SIDE SALINE LOCKED. PT IS STABLE. FLACC 0. PLAN OF CARE DISCUSSED. PATIENT IS IN RESTRAINS . ALL SAFETY MEASURES ON PLACE
[2021-07-02] MEDS: METOPROLOL 25 MG TAB NG SCH ×2 (09:01→21:15)
--- NOTE | 2021-07-02 11:35 | NUR ---
PATIENT IN BED NO COMPLAINS GOT MORNING MEDICATION TOLERATED WELL, NO SOD NOTED CALLS LOGHT WITHIN REACH ALL SAFETY MEASURES ON PLACE
[2021-07-02 12:00] VITALS: BP 119/73
[2021-07-02] MEDS: INSULIN LISPRO SLIDING SCALE 100 UNITS/ML VIAL SUBQ PRN (12:41)
--- NOTE | 2021-07-02 14:22 | NUR ---
PATIENT IN BED NO COMPLAINS NO SOD NOTED, ALL SAFETY MEASURES ON PLACE CALLS LIGHT WITHIN REACH
[2021-07-02 16:00] VITALS: BP 126/83
--- NOTE | 2021-07-02 16:51 | NUR ---
PATIENT IN BED NO COMPLAINS NO SOD NOTED, ALL SAFETY MEASURES ON PLACE CALLS LIGHT WITHIN REACH
--- NOTE | 2021-07-02 19:50 | NUR ---
FULL REPORT GIVEN TO NEUROSCIENCE SPECIALIST NURSE
--- NOTE | 2021-07-02 19:53 | NUR ---
Received patient from AM shift nurse. Patient is resting in bed with no s/s of distress noted. Patient is unable to verbalize needs. Chest rise is even and unlabored 4LNC. Normal hears sounds present. Active bowel sounds on auscultation on GT feeding. No ABD tenderness on palpation noted. Patient noted to be on restraints due to pulling on lines. No skin issues noted due to restraints noted. Midline noted to PARADISE patent and flushes no s/s of infection. Bed is locked, in the lowest position with bed rails up. Will continue to monitor the patient throughout the shift.
[2021-07-02 20:00] VITALS: BP 127/72
[2021-07-03] VITALS: BP 141/84
[2021-07-03] MEDS: BLOOD GLUCOSE MONITORING 1 DEV DEV FS SCH ×4 (00:04→17:23)
[2021-07-03 04:00] VITALS: BP 123/102
[2021-07-03] MEDS: DILTIAZEM 30 MG TAB NG SCH ×3 (04:59→21:10)
[2021-07-03] MEDS: METOCLOPRAMIDE 10 MG/2 ML INJ VIAL IVP SCH ×3 (05:10→17:11)
--- NOTE | 2021-07-03 06:56 | NUR ---
Patient is sleeping no s/s of distress is noted. All current shift needs have been met and patient is stable. Safety protocols are in place and patient remain on restraints due to confusion and attempting to pull out lines. Will differ further care to AM shift nurse for continuity of care.
[2021-07-03 06:58] LABS: BASOPHILS % (AUTO) 0.2 % (0.0-2.0); EOSINOPHILS % (AUTO) 0.1 % (0.0-4.0); HEMATOCRIT 31.2 % (36-48); HEMOGLOBIN 10.5 g/dL (12.0-16.0); LYMPHOCYTES # (AUTO) 0.4 K/uL (2.5-16.5); MEAN CORPUSCULAR HEMOGLOBIN 31 pg (27-31); MEAN CORPUSCULAR HGB CONC 34 g/dL (33-37); MEAN CORPUSCULAR VOLUME 91.8 fL (80-94); MONOCYTES # (AUTO) 1.1 K/uL (0.8-1.0); NEUTROPHILS # (AUTO) 9.3 K/uL (1.8-7.7); NEUTROPHILS % (AUTO) 85.7 % (42.2-75.2); PLATELET COUNT (AUTO) 416 K/uL (140-450); RED CELL DISTRIBUTION WIDTH 15.6 % (11.6-13.7); WHITE BLOOD COUNT (AUTO) 10.8 K/uL (4.8-10.8)
--- NOTE | 2021-07-03 07:45 | NUR ---
PHYSICAL THERAPY CO-SIGN The Physical Therapy Progress Notes documented by Promotions Associate have been reviewed. Reviewed/Co-Signed by: Ana Whitehead Documentation Done by: ANTOINETTE DEL ROSARIO PTA Addendum: 07/03/21 at 0745 by Ana Whitehead PT Amended: Links added.
[2021-07-03 07:49] LABS: ALBUMIN 2.3 g/dL (3.4-5.0); ANION GAP 14.1 (8-16); ASPARTATE AMINOTRANSFERASE 27 U/L (15-37); CARBON DIOXIDE 27.4 mmol/L (21-32); CHLORIDE 100 mmol/L (98-107); CREATININE 0.7 mg/dL (0.6-1.3); GLUCOSE 129 mg/dL (74-106); POTASSIUM 3.5 mmol/L (3.5-5.1); SODIUM SERUM 138 mmol/L (136-145); TOTAL BILIRUBIN 1.9 mg/dL (0.0-1.0); UREA NITROGEN, BLOOD 51 mg/dL (7-18)
--- NOTE | 2021-07-03 07:52 | NUR ---
RECEIVED BEDSIDE REPORT FROM PAYROLL AUDITOR NURSE FOR CONTINUITY OF CARE. PT IS AWAKE WITH EYES OPEN. A&OX0. ON 3L O2 NC WITH BREATHING UNLABORED. G TUBE IN PLACE INFUSING FEEDING ORDERED. MOORE CATH IN PLACE DRAINING URINE. SKIN IS WARM, DRY, AND INTACT. MIDLINE IN THE UPPER ARM RIGHT SIDE SALINE LOCKED. PT IS STABLE. FLACC 0. PLAN OF CARE DISCUSSED. PATIENT IS IN RESTRAINS . ALL SAFETY MEASURES ON PLACE
[2021-07-03 08:00] VITALS: BP 111/94
[2021-07-03] MEDS: METOPROLOL 25 MG TAB NG SCH ×2 (08:26→21:10)
--- NOTE | 2021-07-03 09:19 | NUR ---
patient in bed no complains no sod noted, got morning medication tolerated well, calls light wihtin reach all safety measures on place
--- NOTE | 2021-07-03 11:56 | NUR ---
PATIENT IN BED NO COMPLAINS NO SOD NOTED, NO COMPLAINS. CALLS LIGHT WITHIN REACH ALL SAFETY MEASURES ON PLACE
[2021-07-03 12:26] VITALS: BP 107/63
--- NOTE | 2021-07-03 14:02 | NUR ---
PATIENT IN BED NO COMPLAINS NO SOD NOTED, NO COMPLAINS. CALLS LIGHT WITHIN REACH ALL SAFETY MEASURES ON PLACE Addendum: 07/03/21 at 1606 by Germán Cifuentes RN RN FAMILY ANTONIA CAME9 DAUGHTER ) SO SHE WILL BE TRAINED ON THE FEEDING AND CARE OF PATIENT AT HOME, DAUGHTER DOES NOT SEEMS TO BE ABLE TO TAKE CARE OF THE MOM BY HER SELF SHE ALSO STAT THAT IT IS TOO MUCH AND SHE CAN NOT TAKE CARE OF HER MOM , SHE ASKED FOR REHAB FACILITY, DR MEYERS TALKED TO THE DAUGHTER AND STAT THAT HE WILL TALK TO HAROON RUTLEDGE TO DISCUSS OPTION OF REHAB
[2021-07-03] MEDS: INSULIN LISPRO SLIDING SCALE 100 UNITS/ML VIAL SUBQ PRN ×2 (14:59→17:25)
[2021-07-03 16:00] VITALS: BP 119/51
--- NOTE | 2021-07-03 16:02 | NUR ---
PATIENT IN BED NO COMPLAINS NO SOD NOTED, NO COMPLAINS. CALLS LIGHT WITHIN REACH ALL SAFETY MEASURES ON PLACE
--- NOTE | 2021-07-03 17:29 | NUR ---
PATIENT IN BED COMPLAINS ABOUT PAIN GOT MEDICATED PRN ORDER NO SOD NOTED, NO COMPLAINS. CALLS LIGHT WITHIN REACH ALL SAFETY MEASURES ON PLACE Addendum: 07/03/21 at 1806 by Germán Cifuentes RN RN PATIENT MORE AWAKE ANSWERING QUESTION, ASKED TO REMOVE HER RESTRAIN DR NATH ASK TO DISCONTINUE RESTRAIN IF PATIENT NOT PULLING OUT HER TUBE, EDUCATE PATIENT NOT TO PULL OUT MEDICAL TUBE VERBALIZE UNDERSTANDING, MONITORED THE PATIENT CLOSELY TO SEE HOW SHE IS REACTING WITH OUT RESTRAIN THE PATIENT SEEMS TO BE MORE CALM AND NOT PULLING OUT MEDICAL TUBE, NOT IN RESTRAIN AT THIS MOMENT WILL CONTINUE TO MONITOR WILL ENDORSE TO NOIGHT SHIFT TO MONITOR CLOSELY IF THE PATIENT TRYING TO PULL OUT HER TUBE
--- NOTE | 2021-07-03 19:55 | NUR ---
FULL REPORT GIVEN TO BUSINESS ASST NURSE
[2021-07-03 20:00] VITALS: BP 113/60
--- NOTE | 2021-07-03 20:00 | NUR ---
Patient received from AM shift nurse. No s/s of distress is noted at this time. Chest rise is even and unlabored on 4L via NC. Irregular heart rate is noted at tachy. Active bowel sounds x4 on auscultation, no tenderness is noted on palpation. GT noted and infusing. Abdominal binder in place. Patient is calm and stable. Safety protocols are in place. PARADISE midline is noted and patent. Will continue to monitor patient throughout the shift.
[2021-07-04] VITALS: BP 110/59
[2021-07-04] MEDS: METOCLOPRAMIDE 10 MG/2 ML INJ VIAL IVP SCH ×4 (01:26→18:00)
[2021-07-04] MEDS: BLOOD GLUCOSE MONITORING 1 DEV DEV FS SCH ×4 (01:26→18:10)
--- NOTE | 2021-07-04 03:45 | NUR ---
Patient found confused and agitated. Patient was playing with her feces and had pulled out MID line. Patient was promptly cleaned and MID Line site was assessed and dressed. Patient was placed back on restraints to prevent her from pulling out more lines.
[2021-07-04 04:00] VITALS: BP 141/79
[2021-07-04] MEDS: DILTIAZEM 30 MG TAB NG SCH ×3 (05:51→21:17)
--- NOTE | 2021-07-04 07:40 | NUR ---
RECEIVED REPORT FROM HOTEL STAFF MEMBER NURSE FOR CONTINUITY OF CARE. PT IN BED, ASLEEP. ON O2 VIA NC AT 4L. BREATHING SYMMETRICAL. FLACC 0. MOORE CATHETER INTACT AND PATENT DRAINING DARK YELLOW URINE. GTF INTACT AND PATENT, HOB KEPT ELEVATED. ALL SAFETY MEASURES IN PLACE.
[2021-07-04 08:00] VITALS: BP 144/86
--- NOTE | 2021-07-04 09:00 | NUR ---
O2 TITRATED TO 2L NC, SATING AT 94% BREATHING SYMMETRICAL. WILL CONTINUE TO MONITOR.
[2021-07-04] MEDS: METOPROLOL 25 MG TAB NG SCH (09:08)
--- NOTE | 2021-07-04 09:10 | NUR ---
SCHEDULED AM MEDICATION GIVEN PER MD ORDER.
--- NOTE | 2021-07-04 11:44 | NUR ---
ACCUCHECK DONE BS 129. PT IN BED, AWAKE. ON O2 VIA NC AT 2L, SATING AT 94-95% PT HAD EPISODE OF REMOVING NC. FLACC 0. ALL SAFETY MEASURES IN PLACE. WILL CONTINUE TO MONITOR.
[2021-07-04 12:00] VITALS: BP 138/88
--- NOTE | 2021-07-04 12:50 | NUR ---
PT IN BED. ON O2 VIA NC AT 2L, TOLERATING WELL. NO SOB NOTED AT THIS TIME. WILL CONTINUE TO MONITOR.
[2021-07-04 12:51] LABS: BASOPHILS % (AUTO) 0.1 % (0.0-2.0); EOSINOPHILS % (AUTO) 0.1 % (0.0-4.0); HEMATOCRIT 32.7 % (36-48); HEMOGLOBIN 10.9 g/dL (12.0-16.0); LYMPHOCYTES # (AUTO) 0.3 K/uL (2.5-16.5); LYMPHOCYTES % (AUTO) 2.9 % (20.5-51.1); MEAN CORPUSCULAR HEMOGLOBIN 31 pg (27-31); MEAN CORPUSCULAR HGB CONC 33 g/dL (33-37); MEAN CORPUSCULAR VOLUME 91.6 fL (80-94); MONOCYTES # (AUTO) 0.9 K/uL (0.8-1.0); MONOCYTES % (AUTO) 8.2 % (1.7-9.3); NEUTROPHILS # (AUTO) 9.3 K/uL (1.8-7.7); NEUTROPHILS % (AUTO) 88.7 % (42.2-75.2); PLATELET COUNT (AUTO) 445 K/uL (140-450); RED BLOOD CELL COUNT(AUTO) 3.56 MIL/uL (4.20-5.40); RED CELL DISTRIBUTION WIDTH 15.9 % (11.6-13.7); WHITE BLOOD COUNT (AUTO) 10.5 K/uL (4.8-10.8)
--- NOTE | 2021-07-04 14:45 | NUR ---
PHYSICAL THERAPY CO-SIGN The Physical Therapy Progress Notes documented by Traffic Division Commanding Officer have been reviewed. Reviewed/Co-Signed by: Ana Whitehead Documentation Done by: ANTOINETTE DEL ROSARIO PTA Addendum: 07/04/21 at 1445 by Ana Whitehead PT Amended: Links added.
[2021-07-04 14:51] LABS: ANION GAP 12.9 (8-16); CARBON DIOXIDE 30.9 mmol/L (21-32); CHLORIDE 100 mmol/L (98-107); CREATININE 0.7 mg/dL (0.6-1.3); GLUCOSE 134 mg/dL (74-106); POTASSIUM 3.8 mmol/L (3.5-5.1); SODIUM SERUM 140 mmol/L (136-145); UREA NITROGEN, BLOOD 58 mg/dL (7-18)
--- NOTE | 2021-07-04 15:45 | NUR ---
PT IN BED, AWAKE. BREATHING SYMMETRICAL. ON O2 VIA NC AT 2L, SATING AT 95% FLACC 0. GT INTACT AND PATENT. ALL SAFETY MEASURES IN PLACE. WILL CONTINUE TO MONITOR.
[2021-07-04 16:00] VITALS: BP 122/73
--- NOTE | 2021-07-04 18:00 | NUR ---
SPOKE WITH KATERYNA AND NOHEMI SAMSON, PT FOR DISCHARGE TO [place], NO AVAILABLE BED IN [facility]. PORSHA SON REFUSES FOR PT TO GO TO [facility] AND WANTS TO TAKE PT HOME INSTEAD. CM AWARE, DR BRUNO MADE AWARE.
--- NOTE | 2021-07-04 18:16 | NUR ---
PT [id number] BERNICE AT BEDSIDE. SPOKE WITH FRANCISCO (SON), BUTCH, AND MALI SONG ABOUT OPTIONS FOR PT DISCHARGE. PT FAMILY WOULD LIKE TO TAKE PT HOME WITH FEEDING INSTRUCTION AND AFTER THE ARRIVAL OF SUPPLIES. PT SON THEN SPOKE TO CM AGAIN, SON DECIDED PT SHOULD GO TO [facility] TOMORROW. WILL ENDORSE TO ONCOMING SHIFT TO FOLLOW UP TOMORROW WITH SON.
--- NOTE | 2021-07-04 19:30 | NUR ---
Received patient from AM shift nurse. Patient is resting with no s/s of distress at this time. Patient noted to remain on restraints for safety and attempting to pull out lines. Chest rise is even and unlabored on RA. Heart sounds are noted to be tachy. GT is noted to the Abdomen and is hanging free flow at 9 drops per min. Active bowel sounds noted and no tenderness with palpation. Patient currently has to access line for IV medication due to pulling out Midline earlier this morning. Patient is currently stable. Safety protocols are in place. Will continue to monitor the patient throughout the shift.
[2021-07-04 20:00] VITALS: BP 161/68
[2021-07-04] MEDS: METOPROLOL 50 MG TAB NG SCH (21:16)
[2021-07-05] VITALS: BP 151/86
[2021-07-05] MEDS: BLOOD GLUCOSE MONITORING 1 DEV DEV FS SCH ×4 (00:05→17:18)
--- NOTE | 2021-07-05 00:21 | NUR ---
Patient is resting in bed, and remains confused and attempting to pull out lines. Patient received patient care and was cleaned and reposition. GT continues to infuse and patient is tolerating it well. No s/s of distress is noted and patient remains on O2 at 2L via NC. Will continue to monitor.
[2021-07-05 04:00] VITALS: BP 146/85
[2021-07-05] MEDS: DILTIAZEM 30 MG TAB NG SCH ×2 (05:14→12:50)
[2021-07-05] MEDS: METOCLOPRAMIDE 10 MG/2 ML INJ VIAL IVP SCH ×4 (05:47→17:18)
--- NOTE | 2021-07-05 07:35 | NUR ---
RECEIVED REPORT FROM FINANCE AND ADMINISTRATION MANAGER NURSE FOR CONTINUITY OF CARE. PT ASLEEP IN BED. ON O2 VIA NC AT 2L. BREATHING SYMMETRICAL. FLACC 0. MOORE CATHETER INTACT AND PATENT DRAINING DARK YELLOW CLEAR URINE, NO SEDIMENTS NOTED. GTF INTACT AND PATENT. ALL SAFETY MEASURES IN PLACE. WILL CONTINUE TO MONITOR.
[2021-07-05 08:00] VITALS: BP 131/85
--- NOTE | 2021-07-05 08:44 | NUR ---
Spoke to the son Aisha about transferring his mother to SNF for rehab. He was informed to follow up with SNF PT progress daily since there is restriction on visitation. He was well aware and was informed to proceed with the transfer to SNF and is OK to transfer his mother to [place]. .
--- NOTE | 2021-07-05 09:05 | NUR ---
SPOKE WITH MALI SONG. PT DISCHARGING TO [facility] BED 30C, REPORT TO BE GIVEN [phone]. MEDLIFT TO [facility]ER, AWAITING TIME FROM [facility]. PT CLEANED AND CHANGED. NO S/S OF DISTRESS. O2 AT 2L NC. CALL LIGHT IN REACH. PATIENT RESTRAINTS WERE REMOVED DURING CHANGING, PT ATTEMPTED TO PULL OFF NC, GTUBE, AND MOORE. PT WAS RESTRAINED BEFORE NURSES EXITED THE ROOM TO PREVENT PT FROM MORE HARM TO SELF. ALL SAFETY MEASURES IN PLACE
[2021-07-05] MEDS: METOPROLOL 50 MG TAB NG SCH (09:06)
--- NOTE | 2021-07-05 09:21 | NUR ---
PHYSICAL THERAPY CO-SIGN The Physical Therapy Progress Notes documented by Plastic Tile Layer have been reviewed. Reviewed/Co-Signed by: Ana Whitehead Documentation Done by: ANTOINETTE DEL ROSARIO PTA Addendum: 07/05/21 at 0922 by Ana Whitehead PT Amended: Links added.
--- NOTE | 2021-07-05 10:45 | NUR ---
PT AWAKE IN BED. WITH EPISODES OF ATTEMPTING TO REMOVE NC AND PULSE OXIMETER LINES. BREATHING SYMMETRICAL. FLACC 0. WILL CONTINUE TO MONITOR.
[2021-07-05 12:00] VITALS: BP 134/87
[2021-07-05] MEDS ORDERED: FUROSEMIDE 40 MG TAB GT SCH (12:05)
--- NOTE | 2021-07-05 12:10 | NUR ---
PT AWAKE IN BED. BREATHING SYMMETRICAL. ON O2 2L NC. GT INTACT AND PATENT. FLACC 0. ALL SAFETY MEASURES IN PLACE. WILL CONTINUE TO MONITOR.
--- NOTE | 2021-07-05 12:31 | NUR ---
TRANSPORT UPDATE FROM CM PAT. [facility] PT BETWEEN [phone] TODAY. WILL ENDORSE TO PICK UP WORKER NURSE. WILL GIVE REPORT TO KARON CAMPA AND SET UP DC PAPERWORK
--- NOTE | 2021-07-05 14:57 | NUR ---
PT ASLEEP IN BED. BREATHING SYMMETRICAL. ON O2 VIA NC AT 2L, SATING AT 95% FLACC 0. ALL SAFETY MEASURES IN PLACE. WILL CONTINUE TO MONITOR.
[2021-07-05 16:00] VITALS: BP 118/70
--- NOTE | 2021-07-05 17:39 | NUR ---
DAUGHTER IN LAW AT BEDSIDE AND MADE AWARE OF ASSISTANT GENERAL MANAGER TIME FOR PT. NADER CAMPA SPOKE WITH TERESA DELANEY AND GAVE REPORT. Addendum: 07/05/21 at 1755 by Lida Colindres RN PER HOUSING CASE MANAGER TO DISCONTINUE MOORE CATHETER, DR BRUNO MADE AWARE TO DC MOORE CATHETER.
--- NOTE | 2021-07-05 18:25 | NUR ---
MOORE CATHETER REMOVED. PT TOLERATED WELL. NO S/SX OF PAIN NOTED. PT REMOVING NC AND PULLING ON PULSE OXIMETER LINE. FREQUENT ROUNDS DONE. WILL CONTINUE TO MONITOR.
--- NOTE | 2021-07-05 19:15 | NUR ---
[facility] TRANSPORT IN FACILITY TO [facility] WORKER PT. SON CALLED AND OPPOSES DISCHARGE. INFORMED DR BRUNO THAT FAMILY WAS OPPOSING DISCHARGE WHILE ON PHONE, PT'S SON WAS SPEAKING TO [facility] AND AGREED TO DISCHARGE PT. DR BRUNO MADE AWARE. PT DISCHARGED TO [facility], ON O2 2L NC SATING AT 95%. HR118 AFIB WHICH IS PT'S BASELINE.
[2021-07-05] MEDS ORDERED: METOPROLOL 50 MG TAB NG SCH (21:00)
--- NOTE | 2021-07-06 15:00 | NUR ---
PHYSICAL THERAPY CO-SIGN The Physical Therapy Progress Notes documented by Client Resource Specialist have been reviewed. Reviewed/Co-Signed by: Ana Whitehead Documentation Done by: Amy schofield PTA Addendum: 07/06/21 at 1500 by Ana Whitehead PT Amended: Links added.
== END 2021-07-05 19:15 | DRG 871 ==
LOC: MED 15:15 → MTU 22:18 → MIC 06-15 08:14 → MTU 06-24 20:27
PROVIDERS: ADMIT Hospitalist; ATTEND Hospitalist
PROC: 05HY33Z Insertion of Infusion Device into Upper Vein, Percutaneous Approach (ICD-10-PCS; principal; 2021-06-18)
PROC: B54MZZA Ultrasonography of Right Upper Extremity Veins, Guidance (ICD-10-PCS; 2021-06-18)
PROC: 5A0935A Assistance with Respiratory Ventilation, Less than 24 Consecutive Hours, High Flow/Velocity Cannula (ICD-10-PCS; 2021-06-19)
PROC: 5A0935A Assistance with Respiratory Ventilation, Less than 24 Consecutive Hours, High Flow/Velocity Cannula (ICD-10-PCS; 2021-06-20)
PROC: 5A0935A Assistance with Respiratory Ventilation, Less than 24 Consecutive Hours, High Flow/Velocity Cannula (ICD-10-PCS; 2021-06-21)
PROC: 5A0955A Assistance with Respiratory Ventilation, Greater than 96 Consecutive Hours, High Flow/Velocity Cannula (ICD-10-PCS; 2021-06-22)
PROC: 0DH63UZ Insertion of Feeding Device into Stomach, Percutaneous Approach (ICD-10-PCS; 2021-06-29)
DX: A41.9 Sepsis, unspecified organism (principal); I50.33 Acute on chronic diastolic (congestive) heart failure; J96.01 Acute respiratory failure with hypoxia; J18.9 Pneumonia, unspecified organism; U07.1 COVID-19; N39.0 Urinary tract infection, site not specified; E87.2 Acidosis; N17.9 Acute kidney failure, unspecified; E87.0 Hyperosmolality and hypernatremia; E87.3 Alkalosis; E87.1 Hypo-osmolality and hyponatremia; R07.9 Chest pain, unspecified; R62.7 Adult failure to thrive; F03.90 Unspecified dementia, unspecified severity, without behavioral disturbance, psychotic disturbance, mood disturbance, and anxiety; E87.8 Other disorders of electrolyte and fluid balance, not elsewhere classified; E87.6 Hypokalemia; E86.0 Dehydration; R13.10 Dysphagia, unspecified; I08.3 Combined rheumatic disorders of mitral, aortic and tricuspid valves; I27.21 Secondary pulmonary arterial hypertension; I48.0 Paroxysmal atrial fibrillation; Z85.028 Personal history of other malignant neoplasm of stomach; Z92.21 Personal history of antineoplastic chemotherapy; Z92.3 Personal history of irradiation; Z68.33 Body mass index [BMI] 33.0-33.9, adult; Z91.19 Patient's noncompliance with other medical treatment and regimen
CPT/HCPCS: 36415; 36600; 70450; 71045; 74018; 80048; 80053; 81001; 81003; 82140; 82533; 82803; 82948; 83036; 83605; 83735; 83880; 83935; 84100; 84300; 84443; 84484; 84550; 85025; 85610; 85730; 87040; 87081; 87086; 92526; 93005; 96361; 96365; 96367; 96376; 97110; 97112; 97163-GP; 97530; 99291; C1894; J0282; J0456; J0696; J1160; J1815; J1940; J2001; J2060; J2250; J2270; J2543; J2765; J3010; J3475; J3480; J3490; J7030; J7060; Q0092; U0003